=== PATIENT | female | born 1970 | race Caucasian/White ===

== ENCOUNTER → 2019-08-13 16:51 | Outpatient (BNVA) | payer SELFPAY | PROVIDERS: Family Provider Family Medicine; PCP Family Medicine; Visit Provider Emergency Medicine | DX: M54.5 Low back pain (principal) | CPT/HCPCS: 81000 ==

== ENCOUNTER → 2021-11-30 09:26 | Outpatient (BNVA) | payer MEDICAID, SELFPAY | PROVIDERS: Family Provider Family Medicine; PCP Family Medicine; Visit Provider Orthopaedic Surgery | DX: S83.241A Other tear of medial meniscus, current injury, right knee, initial encounter (principal); W19.XXXA Unspecified fall, initial encounter; M71.21 Synovial cyst of popliteal space [Baker], right knee | CPT/HCPCS: 73560; 73565 ==

== ENCOUNTER → 2022-05-18 13:57 | Outpatient (BNVA) | payer MEDICAID, SELFPAY | PROVIDERS: Family Provider Family Medicine; Visit Provider Emergency Medicine | DX: M79.644 Pain in right finger(s) (principal) | CPT/HCPCS: 73130 ==

== ENCOUNTER → 2022-08-01 15:36 | Outpatient (BNVA) | payer MEDICAID, SELFPAY | PROVIDERS: Family Provider Family Medicine; Visit Provider Family Medicine | DX: M51.16 Intervertebral disc disorders with radiculopathy, lumbar region (principal); M48.07 Spinal stenosis, lumbosacral region | CPT/HCPCS: 72100 ==

== ENCOUNTER → 2022-08-15 14:35 | Outpatient (BNVA) | payer MEDICAID, SELFPAY | PROVIDERS: Family Provider Family Medicine; PCP Family Medicine; Visit Provider Nurse Practitioner Family | DX: M25.569 Pain in unspecified knee (principal) | CPT/HCPCS: 73560; 73565 ==

== ENCOUNTER → 2023-04-06 11:29 | Outpatient (BNVA) | payer MEDICAID, SELFPAY | PROVIDERS: Family Provider Family Medicine; PCP Family Medicine; Visit Provider Nurse Practitioner | DX: M25.562 Pain in left knee (principal); R93.6 Abnormal findings on diagnostic imaging of limbs | CPT/HCPCS: 73562 ==

== ENCOUNTER → 2023-05-07 13:28 | Outpatient (BNVA) | payer MEDICAID, SELFPAY | PROVIDERS: Family Provider Family Medicine; PCP Family Medicine; Visit Provider Nurse Practitioner | DX: M17.11 Unilateral primary osteoarthritis, right knee (principal); M25.362 Other instability, left knee; S83.207A Unspecified tear of unspecified meniscus, current injury, left knee, initial encounter; X58.XXXA Exposure to other specified factors, initial encounter | CPT/HCPCS: 73560; 73565 ==

== ENCOUNTER → 2023-05-09 10:57 | Outpatient (BNVA) | payer MEDICAID, SELFPAY | PROVIDERS: Family Provider Family Medicine; PCP Family Medicine; Visit Provider Family Medicine | DX: Z13.6 Encounter for screening for cardiovascular disorders (principal); I50.9 Heart failure, unspecified; E03.9 Hypothyroidism, unspecified; Z13.1 Encounter for screening for diabetes mellitus; Z13.220 Encounter for screening for lipoid disorders | CPT/HCPCS: 80053; 80061; 83036; 84439; 84443; 84481; 85025 ==

== ENCOUNTER 2023-06-12 13:34 | Outpatient (CLI) | payer MEDICAID, SELFPAY ==
--- NOTE | 2023-06-12 13:45 | MR_ITS ---
WS: [id number] MRI LEFT KNEE HISTORY: left knee pain and instability COMPARISON: None available. Anterior cruciate ligament: Intact. Posterior cruciate ligament: Intact. Medial collateral ligament: Increased T2 signal adjacent to the mid to distal MCL. There is no full-t hickness tear. Posterior lateral corner structures: Intact. Medial menisci: Mild fraying along the anterior and posterior horns. No full-thickness tear is identi fied. Lateral meniscus: Intact. Normal signal, size and shape. Extensor mechanism: Distal quadriceps tendon and patellar tendons are intact. Fluid and soft tissue: No joint effusion. No Carranza's cyst. Osseous and articular structures: Patellofemoral compartment: Normal. Medial compartment: Moderate narrowing the medial compartment. Marrow edema along the weightbearing s urface of the tibial plateau and into the diaphysis. There is an additional thinning with fissuring t he weightbearing surface of the femoral condyle and tibial plateau. Moderate diffuse chondromalacia. Lateral compartment: Mild narrowing of the lateral compartment with thinning and fissuring of the car tilage. IMPRESSION: 1. Mild MCL sprain. No full-thickness tear. 2. Marrow edema medial tibial plateau. No fracture identified. 3. Moderate narrowing of the medial compartment with moderate chondromalacia. 4. Mild narrowing of the lateral compartment with mild fissuring of the cartilage. 5. No meniscal tear is identified.
== END 2023-06-12 13:35 | disposition home or self-care (01) ==
LOC: RAD 13:34
PROVIDERS: Family Provider Family Medicine; PCP Family Medicine; Visit Provider Nurse Practitioner
DX: M25.362 Other instability, left knee (principal); S83.207A Unspecified tear of unspecified meniscus, current injury, left knee, initial encounter; M23.52 Chronic instability of knee, left knee; S83.8X2A Sprain of other specified parts of left knee, initial encounter; X58.XXXA Exposure to other specified factors, initial encounter
CPT/HCPCS: 73721

== ENCOUNTER → 2023-09-12 14:48 | Outpatient (BNVA) | payer MEDICAID, SELFPAY | PROVIDERS: PCP Family Medicine; Visit Provider Specialist | DX: S83.412A Sprain of medial collateral ligament of left knee, initial encounter (principal); M17.12 Unilateral primary osteoarthritis, left knee; S80.02XA Contusion of left knee, initial encounter; S83.207A Unspecified tear of unspecified meniscus, current injury, left knee, initial encounter; W22.8XXA Striking against or struck by other objects, initial encounter | CPT/HCPCS: 73560; 73565 ==

== ENCOUNTER 2023-10-23 15:48 | Outpatient (CLI) | payer MEDICAID, SELFPAY ==
--- NOTE | 2023-10-23 16:00 | MR_ITS ---
WS: [id number] MRI LEFT KNEE NONCONTRAST TECHNIQUE: Axial PD, coronal PD fat sat, coronal PD, sagittal PD, and sagittal PD fat-sat images obta ined. CLINICAL INFORMATION: pain after injury COMPARISON: MRI 06/12/2023 FINDINGS: Distal quadriceps and patella tendons are intact. Hypertrophic patella. Small suprapatellar effusion. ACL and PCL are intact. Normal lateral meniscus. Horizontal tear involving the posterior horn medial meniscus extending to th e articular surface. Peripheral extrusion of the medial meniscus Grade 1 injury MCL previously described appears improved. Fibular head appears normal. Small amount o f fluid and edema along the proximal LCL compatible with grade 1 injury. Distal LCL appears intact. Moderate chondromalacia patella. Normal medial and lateral retinaculum. Normal popliteal fossa. MR/MR knee LT wo con* [id number] IMPRESSION: 1. ACL and PCL appear intact. 2. Moderate tricompartmental arthritis with moderate suprapatellar effusion 3. Grade III chondromalacia patella. 4. Grade 1 ligamentous injury LCL with fluid and edema along the proximal LCL. Distal ligament appears intact. 5. Horizontal tear involving the posterior horn medial meniscus extending to t he articular surface. Peripheral extrusion of the medial meniscus 6. Previously described edema in the medial tibial plateau appears improved wi th a tiny amount of residual edema. 7. No other acute findings. Outbridge grading: grade III: partial-thickness cartilage loss with focal ulcer ation
== END 2023-10-23 15:49 | disposition home or self-care (01) ==
LOC: RAD 15:49
PROVIDERS: PCP Family Medicine; Visit Provider Specialist
DX: M17.12 Unilateral primary osteoarthritis, left knee (principal); S83.207A Unspecified tear of unspecified meniscus, current injury, left knee, initial encounter; M25.362 Other instability, left knee; S83.412A Sprain of medial collateral ligament of left knee, initial encounter; X58.XXXA Exposure to other specified factors, initial encounter
CPT/HCPCS: 73721

== ENCOUNTER → 2023-10-29 14:06 | Outpatient (BNVA) | payer MEDICAID, SELFPAY | PROVIDERS: PCP Family Medicine; Visit Provider Family Medicine | DX: I50.9 Heart failure, unspecified (principal); E03.9 Hypothyroidism, unspecified | CPT/HCPCS: 80048; 84443 ==

== ENCOUNTER 2023-11-06 08:56 | Outpatient (CLI) | payer MEDICAID, SELFPAY ==
[2023-11-06 09:18] LABS: Charge for UA Resulting for Rev
[2023-11-06 09:22] LABS: Basophils # 0.1 10^3/uL (0.0-0.1); Basophils % 0.9 %; Eosinophils # 0.4 10^3/uL (0.0-0.8); Eosinophils % 5.4 %; Hematocrit 40.3 % (36-47); Lymphocytes # 1.6 10^3/uL (0.8-4.8); Lymphocytes % 23.4 %; Mean Corpuscular HGB Conc 32.5 g/dL (30-55); Mean Corpuscular Hemoglobin 29.2 pg (27-33); Mean Platelet Volume 10.3 fL (7.4-10.4); Monocytes # 0.6 10^3/uL (0.2-0.9); Monocytes % 8.5 %; Neutrophils # 4.21 10^3/uL (1.8-7.7); Neutrophils % 61.5 %; Nucleated Red Blood Cells % 0 %; Platelet Count 221 10^3/cmm (157-399); Red Blood Count 4.48 10^6/uL (3.85-5.65); Red Cell Distribution Width 13.5 % (12.1-15.1); White Blood Count 6.84 10^3/uL (3.29-11.43)
[2023-11-06 09:32] LABS: Bilirubin Urine Neg (Negative); Blood Urine Neg (Negative); Glucose Urine UA Norm (Normal); Ketones Urine Negative (Negative); Leukocyte Esterase Urine Negative (Negative); Nitrate Urine Negative (Negative); Protein Urine Neg (Negative); Urine Appearance Clear (CLEAR); Urine Color Yellow (Yellow); Urobilinogen Urine Norm (Negative); pH Urine 5 (5-7)
[2023-11-06 09:40] LABS: Alanine Aminotransferase 10 U/L (0-33); Albumin Level 4.1 g/dL (3.5-5.2); Alkaline Phosphatase 81 U/L (35-105); Anion Gap 13.9 (5-19); Aspartate Amino Transferase 12 U/L (0-32); Blood Urea Nitrogen 21 mg/dL (6-20); Calcium 8.6 mg/dL (8.5-10.5); Carbon Dioxide 25 mmol/L (22-29); Chloride 107 mmol/L (98-107); Globulin 3.2 g/dL (1.3-4.6); Glomerular Filtration Rate 52.4 mL/min (90-130); Glucose 96 mg/dL (65-115); Osmolality Calculated 297 mOsm/kg (285-295); Potassium 3.9 mmol/L (3.5-5.1); Sodium 142 mmol/L (136-145); Total Bilirubin 0.4 mg/dL (0.15-1.2); Total Protein 7.3 g/dL (6.6-8.7)
== END 2023-11-06 08:57 | disposition home or self-care (01) ==
LOC: LAB 08:58
PROVIDERS: PCP Family Medicine; Visit Provider Nurse Practitioner
DX: M17.12 Unilateral primary osteoarthritis, left knee (principal)
CPT/HCPCS: 36415; 80053; 81003; 81015; 85025

== ENCOUNTER 2023-11-12 14:11 | Outpatient (CLI) | payer MEDICAID, SELFPAY ==
--- NOTE | 2023-11-12 14:00 | CT_ITS ---
WS: [id number] CT LEFT knee, noncontrast HISTORY: PER [facility] PROTOCOL TECHNIQUE: Protocol for [facility] total knee replacement has been obtained. This includes axial imaging th rough the LEFT hip, LEFT knee and LEFT ankle. DLP: 824.36 mGy.cm COMPARISON: Radiograph 09/12/2023 Visualized pelvis is normal. No bone destruction. No joint space narrowing. LEFT knee: No fractures or significant osteophytosis. Small suprapatellar joint effusion. LEFT ankle: Negative. CT/CT knee [facility] [id number] IMPRESSION: CT imaging provided for [facility] robotic total knee replacement.
== END 2023-11-12 14:12 | disposition home or self-care (01) ==
LOC: RAD 14:12
PROVIDERS: PCP Family Medicine; Visit Provider Nurse Practitioner
DX: M17.12 Unilateral primary osteoarthritis, left knee (principal); S83.207A Unspecified tear of unspecified meniscus, current injury, left knee, initial encounter; M25.362 Other instability, left knee; X58.XXXA Exposure to other specified factors, initial encounter
CPT/HCPCS: 73700

== ENCOUNTER → 2023-11-14 09:35 | Outpatient (BNVA) | payer MEDICAID, SELFPAY | PROVIDERS: PCP Family Medicine; Visit Provider Family Medicine | DX: Z01.818 Encounter for other preprocedural examination (principal) | CPT/HCPCS: 93005 ==

== ENCOUNTER 2023-11-28 11:38 | Outpatient (CLI) | payer MEDICAID, SELFPAY ==
--- NOTE | 2023-11-28 11:40 | USCV_ITS ---
Deyanira Frey Age: 53 Gender: F : 1970 Exam Date: 11/28/2023 11:52 Ordering Phys: Berna Roger MD Technologist: [place] [facility] [place]: BP: 114 / 75 HR: 89 Rhythm: Sinus Technical Quality: Adequate MEASUREMENTS (Male / Female) Normal Values 2D ECHO LVOT Diameter 2.0 cm LV Ejection Fraction MOD 4C 32.6 % LV Ejection Fraction MOD 2C 46.2 % LV Ejection Fraction 2C AL 46.4 % LA Diameter 3.2 cm RA Systolic Volume 4C AL 27.9 ml RA Systolic Volume 4C MOD 27.3 ml LA Sys Volume AL 50.6 cm cubed LA Sys Volume Index AL 24.4 cm cubed/m squared Aorta at Sinotubular Diameter 2.5 cm IVC Diameter 2.3 cm M-MODE LA Ao Ratio MM 1.2 AV Cusp Separation MM 1.7 cm DOPPLER AV Peak Velocity 109.0 cm/s LVOT Peak Velocity 107.0 cm/s AV Area Cont Eq vti 2.9 cm squared AV Area Cont Eq pk 3.1 cm squared MV Peak Velocity 118.0 cm/s MV Area PHT 4.3 cm squared Mitral E to A Ratio 109.0 TV Peak E Velocity 72.0 cm/s Right Atrial Pressure 3.0 mmHg PV Peak Velocity 72.0 cm/s FINDINGS Left Ventricle Severely increased left ventricular cavity size. Severely decreased left ventricular systolic function. Left ventricular ejection fraction is estimated at 20 %. Global left ventricular hypokinesis. Grade II/IV diastolic dysfunction, moderately elevated filling pressures Right Ventricle The right ventricle is normal in size and function. Right Atrium The right atrium is normal in size. Left Atrium The left atrium is normal in size. Mitral Valve Thickened mitral valve. Moderate mitral valve regurgitation. Aortic Valve Mild aortic valve calcification. No aortic valve stenosis. Trace aortic valve regurgitation. Tricuspid Valve Structurally normal tricuspid valve without significant stenosis or regurgitation. Pulmonary artery systolic pressure is normal. Pulmonic Valve Structurally normal pulmonic valve without significant stenosis. There is no pulmonic regurgitation. Pericardium Normal pericardium without effusion. Aorta Normal ascending aorta dimension. IVC The inferior vena cava appears normal. CONCLUSIONS Severely increased left ventricular cavity size. Severely decreased left ventricular systolic function. Left ventricular ejection fraction is estimated at 20 %. Global left ventricular hypokinesis. Grade II/IV diastolic dysfunction, moderately elevated filling pressures Mild aortic valve calcification. No aortic valve stenosis. Trace aortic valve regurgitation. No significant valve abnormalities. There is no pericardial effusion. Right atrial pressure is around 15 mm of mercury. Nilesh Parks MD (Electronically Signed) Final Date: 29 November 2023 10:38 S
== END 2023-11-28 11:39 | disposition home or self-care (01) ==
LOC: RAD 11:38
PROVIDERS: PCP Family Medicine; Visit Provider Family Medicine
DX: I35.1 Nonrheumatic aortic (valve) insufficiency (principal); I50.20 Unspecified systolic (congestive) heart failure
CPT/HCPCS: 93306

== ENCOUNTER 2024-01-04 10:22 | Outpatient (CLI) | payer OTHER, SELFPAY | END 2024-01-04 10:23 | disposition home or self-care (01) | LOC: SPT 10:22 | PROVIDERS: PCP Family Medicine; Visit Provider Nurse Practitioner | DX: Z46.89 Encounter for fitting and adjustment of other specified devices (principal); S83.4 Sprain of collateral ligament of knee; X58.XXXS Exposure to other specified factors, sequela; M17.12 Unilateral primary osteoarthritis, left knee | CPT/HCPCS: L1852 ==

== ENCOUNTER → 2024-01-17 12:37 | Outpatient (BNVA) | payer MEDICAID, SELFPAY | PROVIDERS: PCP Family Medicine; Referring Provider Internal Medicine Cardiovascular Disease; Visit Provider Family Medicine | DX: R06.02 Shortness of breath (principal) | CPT/HCPCS: 80048; 83880 ==

== ENCOUNTER → 2024-02-27 09:50 | Outpatient (BNVA) | payer MEDICAID, SELFPAY | PROVIDERS: PCP Family Medicine; Visit Provider Nurse Practitioner Family | DX: I50.40 Unspecified combined systolic (congestive) and diastolic (congestive) heart failure (principal); I50.9 Heart failure, unspecified | CPT/HCPCS: 36415; 80048; 83880 ==

== ENCOUNTER 2024-03-11 13:53 | Outpatient (CLI) | payer MEDICAID, SELFPAY ==
--- NOTE | 2024-03-11 14:15 | USCV_ITS ---
Deyanira Frey Age: 53 Gender: F : 1970 Exam Date: 03/11/2024 14:16 Ordering Phys: Selin Nath Technologist: CT Exam Location: [facility]_ Indication: BP: 113 / 72 HR: Rhythm: Sinus Technical Quality: Adequate MEASUREMENTS (Male / Female) Normal Values 2D ECHO LVOT Diameter 2.0 cm LV Ejection Fraction MOD 4C 43.0 % LV Ejection Fraction MOD 2C 27.1 % LV Ejection Fraction 2C AL 28.8 % LA Diameter 3.0 cm RA Systolic Volume 4C AL 37.9 ml RA Systolic Volume 4C MOD 35.7 ml LA Sys Volume AL 43.1 cm cubed LA Sys Volume Index AL 21.2 cm cubed/m squared Aorta at Sinotubular Diameter 2.2 cm M-MODE LA Ao Ratio MM 1.2 AV Cusp Separation MM 1.4 cm FINDINGS Left Ventricle Moderately dilated LV cavity with the depressed ejection fraction of 20-25%((visual). Diffuse hypokinesia left- ventricular with dyskinetic and thinned out septum and severely hypokinetic inferior wall. Right Ventricle Appears to be normal size ejection fraction Right Atrium Appears to be of normal size Left Atrium Appears to be of normal size Mitral Valve No gross morphologic abnormalities Aortic Valve No gross morphologic abnormalities Tricuspid Valve No gross abnormalities noted Pulmonic Valve Pulmonic valve not well visualized. Pericardium Normal pericardium without effusion. Aorta Normal ascending aorta dimension. IVC Inferior vena cava not visualized. CONCLUSIONS Moderately dilated LV cavity with the depressed ejection fraction of 20-25% (visual). Diffuse hypokinesia left-ventricular with dyskinetic and thinned out septum and severely hypokinetic inferior wall. There is no pericardial effusion. There are no intracardiac masses. Compared to the study from 11/28/2023 there may not be a significant change in the 2D findings Dr Nakita Brown MD [facility] (Electronically Signed) Final Date: 16 March 2024 19:15 S
== END 2024-03-11 13:54 | disposition home or self-care (01) ==
PROVIDERS: PCP Family Medicine; Visit Provider Nurse Practitioner Family
DX: I50.40 Unspecified combined systolic (congestive) and diastolic (congestive) heart failure (principal)
CPT/HCPCS: 93308

== ENCOUNTER → 2024-04-09 11:17 | Outpatient (BNVA) | payer MEDICAID, SELFPAY | PROVIDERS: PCP Family Medicine; Visit Provider Nurse Practitioner | DX: M17.12 Unilateral primary osteoarthritis, left knee (principal); M25.362 Other instability, left knee; S83.207D Unspecified tear of unspecified meniscus, current injury, left knee, subsequent encounter; S80.02XD Contusion of left knee, subsequent encounter; S83.412D Sprain of medial collateral ligament of left knee, subsequent encounter; X58.XXXD Exposure to other specified factors, subsequent encounter | CPT/HCPCS: 36415; 73560; 73565; 80053; 81001; 85025 ==

== ENCOUNTER 2024-04-14 14:34 | Outpatient (CLI) | payer MEDICAID, SELFPAY ==
--- NOTE | 2024-04-14 17:15 | CT_ITS ---
WS: [id number] CT LEFT knee, noncontrast HISTORY: surgery planning TECHNIQUE: Protocol for [facility] total knee replacement has been obtained. This includes axial imaging th rough the LEFT hip, LEFT knee and LEFT ankle. DLP: 994.70 mGy.cm COMPARISON: 11/12/2023 Pelvis: No destructive bone lesions. Mild sacroiliitis. LEFT knee: Mild medial compartment osteoarthritis. No joint effusion. LEFT ankle: Negative. CT/CT knee [facility] [id number] IMPRESSION: CT imaging provided for [facility] robotic total knee replacement.
== END 2024-04-14 14:35 | disposition home or self-care (01) ==
LOC: RAD 14:35
PROVIDERS: PCP Family Medicine; Visit Provider Nurse Practitioner
DX: M17.12 Unilateral primary osteoarthritis, left knee (principal); S83.207A Unspecified tear of unspecified meniscus, current injury, left knee, initial encounter; M25.362 Other instability, left knee; X58.XXXA Exposure to other specified factors, initial encounter; M46.1 Sacroiliitis, not elsewhere classified
CPT/HCPCS: 73700

== ENCOUNTER 2024-04-17 12:09 | Inpatient (IN) | payer MEDICAID, SELFPAY ==
[2024-04-17] VITALS (52 sets, daily range): BP systolic 74–126; BP diastolic 48–79; PULSE 62–106; RESP 11–34; TEMP 36.1–36.8; O2SAT 95–100; BMI 31.8
[2024-04-17] MEDS: sodium chloride 0.9% 1,000 ML 30 ML IV (06:19)
[2024-04-17] MEDS: gabapentin 300 mg Capsule PO (06:20)
[2024-04-17] MEDS: CELEcoxib 200 mg Capsule 400 MG PO (06:20)
[2024-04-17] MEDS: acetaminophen 1,000 MG/100 ML PIGGYBACK 400 MG IV ×3 (06:20→20:29)
--- NOTE | 2024-04-17 06:57 | PC.NURSE ---
[id number]: time out performed by TAQUERIA. 30 ml of 1/2 % ropivicaine injected using ultrasound guidence
--- NOTE | 2024-04-17 07:06 | P.ANESASSM_ITS ---
Pre-Anesthetic Assessment Height/Weight: Height 1.65 m Weight 86.636 kg Temp Pulse Resp BP Pulse Ox O2 Del Method 98.2 F 86 18 117/73 98 Room Air 04/17/24 05:57 04/17/24 05:57 04/17/24 05:57 04/17/24 05:57 04/17/24 05:57 04/17/24 06:04 Operation Date: 04/17/24 07:00 Proposed Procedures p Abdifatah Robot Total Knee Arthroplasty with Medial compartment(Left) - Judy Chacon MD Familial anesthetic complications: None Was Beta Kevyn taken within 24 hours: Yes (1200 yesterday) Was Clonidine taken within 24 hours: N/A Last intake: Intake Last Liquid Date 04/16/24 Last Liquid Time 23:40 Last Solid Date 04/16/24 Last Solid Time 23:40 Social No alcohol and No tobacco Exam alert, oriented x 3, clear to auscultation bilaterally and regular rate & rhythm Airway Mallampati: Class I Dentition: false CV/HEM Congestive Heart Failure (EF 20%, medications optimized ) and Hypertension Chronic Renal Insufficiency GI Gastroesophageal Reflux Disease Metabolic Thyroid Disease Anesthetic Plan ASA status: 4 Anesthesia: Regional (specify below) Other: spinal + adductor Risk of > 500 ml blood loss (7ml/kg in children): No Other Pertinent Information Discussed with patient she is at high risk of cardiac complications rafaela- operatively Plan for A-line and placement of defibrillator pads Discussed risks of anesthesia and plan to keep sedation on ditching machine operator side and informed her she may experience some intraop awareness including hearing noises and voices Medications/Allergies Home Medications Medication Instructions Recorded Confirmed Last Taken Type Hinged knee brace, LEFT #1 ea 05/07/23 04/09/24 Unknown Rx hinged knee brace #1 ea 06/18/23 04/09/24 Unknown Rx carvedilol 12.5 mg tablet 12.5 mg PO DAILY 90 days #90 tabs 10/29/23 04/16/24 04/15/24 Rx famotidine 20 mg tablet 20 mg PO BID 90 days #180 tabs 10/29/23 04/16/24 04/15/24 Rx levothyroxine 200 mcg tablet 200 mcg PO DAILY 90 days #90 tabs 10/29/23 04/16/24 04/15/24 Rx meloxicam 15 mg tablet 15 mg PO DAILY 90 days #90 tabs 10/29/23 04/16/24 04/12/24 Rx methocarbamol 750 mg tablet 750 mg PO BID 90 days #180 tabs 10/29/23 04/16/24 04/11/24 Rx Medial [employer] Knee Brace #1 ea 01/04/24 04/09/24 Unknown Rx buspirone 15 mg tablet 15 mg PO TID 30 days #90 tabs 01/11/24 04/16/24 04/13/24 Rx trazodone 50 mg tablet 50 mg PO .qhs PRN Insomnia #30 tabs 01/11/24 04/16/24 Unknown Rx miscellaneous medical supply See Rx Instructions miscellaneous 02/05/24 04/09/24 Unknown Rx .COMPLEX #1 ea pregabalin 100 mg capsule 100 mg PO BID 30 days #60 caps 02/05/24 04/16/24 04/11/24 Rx sacubitril 49 mg-valsartan 51 mg 1 tab PO BID #180 tabs 02/27/24 04/16/24 04/13/24 Rx tablet diazepam 5 mg tablet 5 mg PO BID PRN anxiety 30 days 02/28/24 04/16/24 04/12/24 Rx #30 tabs tramadol 50 mg tablet 50 mg PO Q8H PRN pain #21 tabs 02/29/24 04/16/24 04/14/24 Rx furosemide 20 mg tablet (Lasix) 20 mg PO DAILY #30 tabs 03/31/24 04/16/24 04/14/24 Rx spironolactone 25 mg tablet 25 mg PO DAILY #30 tabs 03/31/24 04/16/24 04/13/24 Rx hydrocodone 5 mg-acetaminophen 325 1 tab PO Q8H PRN pain 5 days #15 04/01/24 04/16/24 04/14/24 Rx mg tablet tabs bupropion HCl 150 mg 24 hr tablet, 150 mg PO QAM 04/16/24 04/16/24 04/13/24 History extended release (Wellbutrin XL) Allergies Allergy/AdvReac Type Severity Reaction Status Date / Time Penicillins Allergy hives Verified 04/16/24 14:03 Current Medications Generic Name Dose Route Start Last Admin Trade Name Freq PRN Reason Stop Dose Admin Sodium Chloride 1,000 mls @ 30 mls/hr 04/17/24 05:45 04/17/24 06:19 Sodium Chloride 0.9% IV 04/18/24 05:44 30 mls/hr .Q24H DENISSE Administration PFSH Anesthesia Medical History MCL sprain of left knee Primary osteoarthritis of left knee Positive Anahi test of left knee Instability of left knee joint Instability of right knee joint Osteoarthritis of right knee Grief MDD (major depressive disorder) Psychiatric care CHF (congestive heart failure) Low back pain at multiple sites Social History Smoking and tobacco/nicotine status: never used tobacco/nicotine Alcohol intake: current Alcohol intake frequency: holidays/special occasions only Substance/Drug Use: never Data Anesthesia Cardiac Studies: Echocardiogram 11/28/23 Echocardiogram Limited Views 03/11/24
--- NOTE | 2024-04-17 07:06 | W.PM.OPSUD ---
Surgery/Procedure H&P Update DATE OF PROCEDURE: April 17, 2024 DATE H&P PERFORMED: 04/09/24 H&P UPDATE INFORMATION: I have reviewed H&P completed within last 30 days, I have examined patient prior to procedure, No changes to prior documentation and H&P is in [facility] EMR on date indicated PLANNED PROCEDURE: Operation Date: 04/17/24 07:00 Proposed Procedures p Abdifatah Robot Total Knee Arthroplasty with Medial compartment(Left) - Judy Chacon MD Related Problem List Diagnoses (1) Primary osteoarthritis of left knee:
[2024-04-17] MEDS: clindamycin 600 MG/50 ML PREMIX 100 MG IV (07:07)
--- NOTE | 2024-04-17 07:10 | ANES.PROC ---
Anesthesia Procedures Procedure/Date: 04/17/24 Nerve Block ^: Nerve Block 1: Main Anesthesia: spinal anesthesia block Time Out Performed: Yes Consent: requested by attending/covering physician, from patient, from other, risks and benefits reviewed and patient agrees to proceed Nerve block location: adductor canal (L) Anesthesia monitors applied: pulse oximetry, EKG, BP cuff and oxygen Nerve block position: supine Anesthetic Used: ropivicaine 0.5% (30 ml) and with decadron (4 mg) Ultrasound used to: recognize landmarks and visualize and ID femerol nerve Nerve Stimulator Used?: No Interscalene/Femoral BLK: 4 stimuplex 21 g needle used for position and inplane approach, visualize local anesthetic spread and no vascular puncture identified Injection: neg aspiration of heme Patient Tolerated Procedure: well Complications: none
[2024-04-17] MEDS: tranexamic acid 1,000 mg/10mL SDV 1000 MG IV (08:06)
[2024-04-17] MEDS: VANCOMYCIN ADD-Vantage 1,000 MG VIAL 3000 MG IRRIGATION (08:13)
[2024-04-17] MEDS: VANCOMYCIN ADD-Vantage 1,000 MG VIAL 1000 MG IRRIGATION (08:14)
[2024-04-17] MEDS: VANCOMYCIN ADD-Vantage 1,000 MG VIAL 1000 MG XX (08:14)
--- NOTE | 2024-04-17 10:40 | XR_ITS ---
WS: [id number] Exam: XR knee LT 3V* [id number] Date/Time of Exam: 04/17/2024 10:43 AM Reason For Exam: Status post unicompartmental knee arthroplasty Medial joint compartment apartment arthroplasty in place in satisfactory position. Postoperative vences ges in the adjacent soft tissues. XR/XR knee LT 3V* [id number] IMPRESSION: 1. Medial joint replacement in satisfactory position.
--- NOTE | 2024-04-17 10:53 | P.OP_ITS ---
Operative Report Date of procedure: April 17, 2024 Pre-op diagnosis: Left knee medial compartment primary osteoarthritis Post-op diagnosis: Left knee medial compartment primary osteoarthritis Post-op findings: Severe degenerative arthritis of the medial compartment of the left knee Procedure done: Left knee medial unicompartmental arthroplasty with Abdifatah guidance Implants: The [place] knee system with a size 3LM Abdifatah onlay tibial baseplate and a Abdifatah onlay tibial insert size 3 x 10 mm with a size 4LM femoral component Specimens removed/disposition: Bone, disposed to have Pathology: None Surgeon: Judy Chacon MD Web Designer Developer: Krysten Silverman NP, who services were required for exposure, completion of the surgical procedure including positioning and retraction. Anesthesia: Spinal (With MAC, ASA 4) Estimated blood loss (mL): 150 Tourniquet time (min): 22 (At 250 mmHg during cementing) IV fluids (mL): 1,000 Urine output (mL): 200 Complications: None Findings: Significant degenerative osteoarthritis of the medial compartment with preservation of cartilage in the lateral and patellofemoral compartments. There was osteophyte formation on the superior and inferior portion of the patella, but this was minimal. Condition: stable Disposition: PACU (Then to floor for postoperative rehabilitation and pain management under observation status.) Brief History: This 53-year-old woman presented with complaints of left knee pain with significant discomfort, aching, crepitation, and instability. The patient tried and failed conservative measures including bracing, medications, physical therapy, and injections. Her pain when presenting to clinic was 6 of 10. Her pain was confined to the medial aspect of the knee. Discussion was undertaken with regards to possible total knee arthroplasty versus unicompartmental knee arthroplasty. Given that lateral and patellofemoral joint spaces appeared well- preserved, plans were made for unicompartmental left knee arthroplasty. Risks and complications were discussed. Consents were signed and questions were answered. Procedure: The patient was brought to the operating theater, and after undergoing spinal anesthesia with supplemental MAC, as well as an adductor canal block, ASA 4, the left lower extremity was prepped with Dura-Prep and draped in usual fashion f ollowing placement of a tourniquet high on the leg. The leg was then draped free.? Tourniquet was not elevated during the case until cementing. At that time, it was elevated to 250 mmHg for a total of 22 minutes.? A surgical pause was performed, and at the time of the surgical pause, we confirmed the site and side of surgery. Additionally, we confirmed the appropriate and timely administration of preoperative antibiotics, clindamycin 600 mg and Transexemic acid 1 g.? The availability of equipment was confirmed, and the patient's identity was verbalized as well.? An additional transexemic acid 1 g will be given postoperatively on the floor. Following the surgical pause, an incision was made centering over the patella continuing proximally and distally as necessary to allow access to the knee joint. Dissection continued through skin and soft tissues using a scalpel. Hemostasis was obtained using electrocautery. The skin incision was followed by a median parapatellar arthrotomy with care to protect the lateral compartment and patellofemoral. The leg was extended and the patella was able to be displaced laterally.? Appropriate arrays and markers were placed in appropriate position for use of the Abdifatah.? Preoperative planning had been accomplished and was discussed in detail with the [facility] sales account representative.? Intraoperative mapping of the femur and tibia was accomplished after the arrays were placed.? Internal markers were also placed.? Once we had accomplished the Abdifatah mapping, we began the appropriate resections for placement of the prosthesis.? The plan was for a left unicompartmental knee arthroplasty with patellar arthroplasty without prosthesis. Once appropriate mapping had been accomplished retraction was established using manual retraction by surgical technicians and also the Abdifatah leg positioner and retractors.? The knee was evaluated.? There was noted to be complete denudement of cartilage from the medial aspect of the femur and tibia. The lateral compartment was found to be nearly pristine. The patella was also found to be nearly pristine as well, but there were osteophytes that were quite small superiorly and inferiorly. These were excised. Appropriate bone resection was accomplished utilizing the Abdifatah. This resection began on the tibia and proceeded to the femur medially. The femur and tibia were appropriate previously prepared for cementing of the unicompartmental prosthesis. Prior to placement of the prosthesis, a patellar arthroplasty without prosthesis was accomplished by removing the osteophyte circumferentially about the patella. A trial reduction was accomplished following removal of the medial meniscus. The anterior cruciate ligament was retained. The trial reduction initially was accomplished with the size 3 tibial baseplate and a 3 x 8 mm insert. We subsequently increase that to a 10 mm insert after the trial reduction was accomplished. The size 4 femur was placed in position without difficulty. With these components in position, we had excellent extension without hyperextension as the patient initially demonstrated. We had excellent varus valgus stability throughout all range of motion of the knee. Therefore, preparation was made for cementing. The knee was copiously irrigated. It was subsequently dried. Cementing was then accomplished first the tibia followed by the femur. Excess cement was cleared from around the prosthetic components. The size 3 x 10 mm insert was placed into position. The knee was placed through range of motion. Further cement was cleared following that. Once the cement had fully cured, attention was directed to closure. The knee was then copiously irrigated with betadine and saline and suctioned dry. Attention was then directed to closure. Closure was accomplished with 0 Vicryl in the fascial tissues.? The suture line of 0 Vicryl was supplemented with strata fix, #0, with a running stitch from proximal to distal and a second running stitch from distal to proximal.? This was followed by Surgiflo and vancomycin powder.? Following this, a 2-0 Monocryl strata fix was used in the subcutaneous tissues, and the skin was closed with a running 3 oh STRATAFIX.? Care was taken to assure an excellent subcutaneous as well as skin closure.? A sterile dressing was then placed consisting of Dermabond Prineo, OpSite, sterile soft roll, and an Gerson wrap including over the foot. The patient was returned the Recovery Room in a satisfactory condition. X- rays were obtained and reviewed there.? The patient will be discharged to the floor for postoperative rehabilitation and pain management. Related Problem List Diagnoses (1) Primary osteoarthritis of left knee:
[2024-04-17] MEDS: ePHEDrine 50 mg/mL Inj 25 MG IM (11:08)
[2024-04-17] MEDS: chlorhexidine gluconate 0.12% Btl 473 mL 30 ML MUCOUS MEM ×3 (12:44→21:43)
[2024-04-17] MEDS: HYDROcodone-acetaminophen 5-325 mg Tablet 1 TAB PO (12:44)
[2024-04-17] MEDS: CELEcoxib 200 mg Capsule PO ×2 (12:44→23:30)
--- NOTE | 2024-04-17 14:12 | ANE.PACU2 ---
Inpatient post-anesthesia follow up: Airway intact: Yes Vital signs: Temperature 97.8 F Pulse Rate 102 Respiratory Rate 18 Blood Pressure 99/61 Pulse Oximetry 96 Oxygen Delivery Me thod Room Air Oxygen Flow Rate 0 Fraction of Inspir ed Oxygen Hydration adequate: Yes Nausea and vomiting: No Pain level: 1 Mental status: Baseline
[2024-04-17] MEDS: BuSPIRONE 10 mg Tablet 15 MG PO ×2 (14:34→20:29)
[2024-04-17] MEDS: tranexamic acid 1,000 MG/100 ML PREMIX 600 MG IV (14:35)
[2024-04-17] MEDS: clindamycin 900 MG/50 ML PREMIX 100 MG IV ×2 (14:35→23:11)
--- NOTE | 2024-04-17 15:54 | PC.NURSE ---
Pt's BP 86/[address] Chacon advised. States she will consult hospitalist for BP management.
--- NOTE | 2024-04-17 16:11 | PM.CONSULT ---
Providers/Reason For Consult Attending Physician: Judy Chacon MD Primary Care Provider: Hallie Gatica MD History of Present Illness History of Present Illness Deyanira Frey is a 54 year old female Medications/Allergies Home Medications Medication Instructions Recorded Confirmed Last Taken Type Hinged knee brace, LEFT #1 ea 05/07/23 04/09/24 Unknown Rx hinged knee brace #1 ea 06/18/23 04/09/24 Unknown Rx carvedilol 12.5 mg tablet 12.5 mg PO DAILY 90 days #90 tabs 10/29/23 04/16/24 04/15/24 Rx famotidine 20 mg tablet 20 mg PO BID 90 days #180 tabs 10/29/23 04/16/24 04/15/24 Rx levothyroxine 200 mcg tablet 200 mcg PO DAILY 90 days #90 tabs 10/29/23 04/16/24 04/15/24 Rx meloxicam 15 mg tablet 15 mg PO DAILY 90 days #90 tabs 10/29/23 04/16/24 04/12/24 Rx methocarbamol 750 mg tablet 750 mg PO BID 90 days #180 tabs 10/29/23 04/16/24 04/11/24 Rx Medial Provider Enrollment Specialist Knee Brace #1 ea 01/04/24 04/09/24 Unknown Rx buspirone 15 mg tablet 15 mg PO TID 30 days #90 tabs 01/11/24 04/16/24 04/13/24 Rx trazodone 50 mg tablet 50 mg PO .qhs PRN Insomnia #30 tabs 01/11/24 04/16/24 Unknown Rx miscellaneous medical supply See Rx Instructions miscellaneous 02/05/24 04/09/24 Unknown Rx .COMPLEX #1 ea pregabalin 100 mg capsule 100 mg PO BID 30 days #60 caps 02/05/24 04/16/24 04/11/24 Rx sacubitril 49 mg-valsartan 51 mg 1 tab PO BID #180 tabs 02/27/24 04/16/24 04/13/24 Rx tablet diazepam 5 mg tablet 5 mg PO BID PRN anxiety 30 days 02/28/24 04/16/24 04/12/24 Rx #30 tabs tramadol 50 mg tablet 50 mg PO Q8H PRN pain #21 tabs 1204/16/24 04/14/24 Rx furosemide 20 mg tablet (Lasix) 20 mg PO DAILY #30 tabs 03/31/24 04/16/24 04/14/24 Rx spironolactone 25 mg tablet 25 mg PO DAILY #30 tabs 03/31/24 04/16/24 04/13/24 Rx hydrocodone 5 mg-acetaminophen 325 1 tab PO Q8H PRN pain 5 days #15 04/01/24 04/16/24 04/14/24 Rx mg tablet tabs bupropion HCl 150 mg 24 hr tablet, 150 mg PO QAM 04/16/24 04/16/24 04/13/24 History extended release (Wellbutrin XL) Allergies Allergy/AdvReac Type Severity Reaction Status Date / Time Penicillins Allergy hives Verified 04/16/24 14:03 Current Medications Generic Name Dose Route Start Last Admin Trade Name Freq PRN Reason Stop Dose Admin Hydrocodone Bitart/Acetaminophen 1 tab 04/17/24 12:12 04/17/24 12:44 Hydrocodone-Acetaminophen 5-325 Mg Tablet PO 1 tab Q8H PRN Administration pain Buspirone HCl 15 mg 04/17/24 15:00 04/17/24 14:34 Buspirone 10 Mg Tablet PO 15 mg TID DENISSE Administration Celecoxib 200 mg 04/17/24 12:12 04/17/24 12:44 Celecoxib 200 Mg Capsule PO 200 mg Q12H DENISSE Administration Chlorhexidine Gluconate 30 ml 04/17/24 13:00 04/17/24 12:44 Chlorhexidine Gluconate 0.12% Btl 473 Ml MUCOUS MEM 30 ml QID DENISSE Administration Acetaminophen 1,000 mg in 100 mls @ 400 mls/hr 04/17/24 12:12 04/17/24 14:26 Acetaminophen IV 04/18/24 04:26 Infused Q8H DENISSE Infusion Clindamycin HCl/Dextrose 900 mg in 50 mls @ 100 mls/hr 04/17/24 15:00 04/17/24 15:18 Cleocin IV 04/18/24 07:29 Infused Q8H DENISSE Infusion Protocol PFSH Acute PFSH: Medical History MCL sprain of left knee Primary osteoarthritis of left knee Positive Anahi test of left knee Instability of left knee joint Instability of right knee joint Osteoarthritis of right knee Grief MDD (major depressive disorder) Psychiatric care CHF (congestive heart failure) Low back pain at multiple sites Social History Smoking and tobacco/nicotine status: never used tobacco/nicotine Alcohol intake: current Alcohol intake frequency: holidays/special occasions only Substance/Drug Use: never Vitals/I&O/Wt Last Vital Signs Temp 97.1 F L 04/17/24 15:50 Pulse 101 H 04/17/24 16:06 Resp 20 H 04/17/24 15:50 BP 86/49 04/17/24 16:06 Pulse Ox 100 04/17/24 15:50 O2 Del Method Room Air 04/17/24 15:50 O2 Flow Rate 0 04/17/24 12:12 04/17/24 04/17/24 04/17/24 06:59 14:59 22:59 Intake Total 100 / 100 150 / 150 150 / 300 Output Total 550 / 550 Balance 100 / 100 -400 / -400 150 / -250 Weight last 48 hrs Weight 86.636 kg Weight 86.636 kg Physical Exam Urinary Catheter Management: Argueta: Cath Placed During This Visit: yes Urinary Catheter Date of Insertion: 04/17/24 Urinary Catheter Time of Insertion: 07:45 Coding Level of Care Code Acute Code for Chg Fwd
[2024-04-17] MEDS: sodium chloride 0.9% 250 ML IV (16:18)
[2024-04-17 17:03] LABS: Basophils % 0.2 %; Hematocrit 31.8 % (36-47); Lymphocytes # 0.5 10^3/uL (0.8-4.8); Lymphocytes % 5.9 %; Mean Corpuscular HGB Conc 32.4 g/dL (30-55); Mean Corpuscular Hemoglobin 29.3 pg (27-33); Mean Corpuscular Volume 90.6 fl (85-98); Mean Platelet Volume 10.8 fL (7.4-10.4); Monocytes # 0.3 10^3/uL (0.2-0.9); Monocytes % 2.8 %; Neutrophils # 8.04 10^3/uL (1.8-7.7); Neutrophils % 90.5 %; Nucleated Red Blood Cells % 0 %; Platelet Count 194 10^3/cmm (157-399); Red Blood Count 3.51 10^6/uL (3.85-5.65); Red Cell Distribution Width 13.7 % (12.1-15.1); White Blood Count 8.88 10^3/uL (3.29-11.43)
--- NOTE | 2024-04-17 17:13 | PC.NURSE ---
following 250 ml bolus, BP 80/57. Pulse 90. Dr. Verduzco advised. Awaiting response. Pt remains in trendelenburg.
[2024-04-17 17:17] LABS: Alanine Aminotransferase 7 U/L (0-33); Albumin Level 3.9 g/dL (3.5-5.2); Alkaline Phosphatase 78 U/L (35-105); Anion Gap 13.1 (5-19); Aspartate Amino Transferase 11 U/L (0-32); Blood Urea Nitrogen 16 mg/dL (6-20); Calcium 8.6 mg/dL (8.5-10.5); Carbon Dioxide 24 mmol/L (22-29); Chloride 109 mmol/L (98-107); Creatinine Clr Calc Pharmacy 59.6101; Globulin 2.6 g/dL (1.3-4.6); Glomerular Filtration Rate 47.2 mL/min (90-130); Glucose 129 mg/dL (65-115); Osmolality Calculated 297 mOsm/kg (285-295); Potassium 4.1 mmol/L (3.5-5.1); Sodium 142 mmol/L (136-145); Total Bilirubin 0.2 mg/dL (0.15-1.2); Total Protein 6.5 g/dL (6.6-8.7)
[2024-04-17] MEDS: mupirocin oint 22 gm 1 APPLIC NASAL (17:31)
[2024-04-17] MEDS: famotidine 20 mg Tablet PO (17:32)
[2024-04-17] MEDS: calcium carbonate 500 mg Chew Tablet 1000 MG PO (17:32)
[2024-04-17] MEDS: iron polysaccharide complex 150 mg Capsule PO (17:32)
[2024-04-17] MEDS: sennosides-docusate Tablet 2 TAB PO (17:33)
--- NOTE | 2024-04-17 17:39 | PC.NURSE ---
New orders received to transfer to ICU
[2024-04-17] MEDS: sodium chloride 0.9% 1,000 ML 75 ML IV (18:12)
--- NOTE | 2024-04-17 18:31 | PHA.VACGOAL ---
Vancomycin Goal - Goal Vancomycin Goal:: 10-15 mg/L Vancomycin Indication:: Other - Therapy Current therapy:: Clindamycin Day of therpy:: Day []of [] . Actual body weight (kg): 191 lb - Data Labs: WBC 8.88 10^3/uL (3.29-11.43) 04/17/24 16:28 RBC 3.51 10^6/uL (3.85-5.65) L 04/17/24 16:28 Hgb 10.30 g/dL (11.27-16.99) L 04/17/24 16:28 Hct 31.8 % (36-47) L 04/17/24 16:28 MCV 90.6 fl (85-98) 04/17/24 16: MCH 29.3 pg (27-33) 04/17/24 16:28 MCHC 32.4 g/dL (30-55) 04/17/24 16:28 RDW 13.7 % (12.1-15.1) 04/17/24 16:28 Sodium 142 mmol/L (136-145) 04/17/24 16:28 Potassium 4.1 mmol/L (3.5-5.1) 04/17/24 16:28 Chloride 109 mmol/L (98-107) H 04/17/24 16:28 Carbon Dioxide 24 mmol/L (22-29) 04/17/24 16:28 Anion Gap 13.1 (5-19) 04/17/24 16:28 BUN 16 mg/dL (6-20) 04/17/24 16:28 Creatinine 1.2 mg/dL (0.5-0.9) H 04/17/24 16:28 GFR Calculation 47.2 mL/min (90-130) L 04/17/24 16:28 Last dialysis session:: N/A Treatment plan:: new consult Regimen:: LOADING DOSE OF 1500 MG PER DOSING PROTOCOL MAINTENANCE DOSE OF 750 MG Q12H Follow up:: WILL CONTINUE TO MONITOR AND FOLLOW UP DAILY
[2024-04-17] MEDS: oxyCODONE 5 mg IR Tab/Cap PO ×2 (19:18→23:11)
[2024-04-17] MEDS: norepinephrine 4 MG/250 ML BAG 7.5 MG IV (19:20)
--- NOTE | 2024-04-17 19:38 | P.CONIM_ITS ---
Providers/Reason For Consult 2 Consulting Physician/Specialty*: Hospitalist Reason for Consult*: Postop hypotension Attending Physician: Judy Chacon MD Primary Care Provider: Hallie Gatica MD History of Present Illness History of Present Illness Deyanira Frey is a 54 year old female postop day 0 Left knee medial unicompartmental arthroplasty with Abdifatah guidance by orthopedics, hospitalist was consulted for postoperative hypotension. Patient is stating that she took Coreg 1 day before her surgery and stopped Entresto as per the instructions, she does have low EF. At the time of my evaluation she is on Levophed at 2 mics, normal saline running at 75 mL/h: I have requested nurse to only run 500 mL of fluids. Patient's blood pressure is 127/54 mmHg, she is not complain of any active shortness of breath or chest pain or abdominal pain stating she is experiencing cramps in her left leg. I have requested nurse to give her muscle relaxer at this point I have counseled patient not to take Entresto at home if blood pressure stays low. She has been taking Coreg and Entresto for quite some time. Lactic acid likely related to hypotension perioperatively. Clinically patient does not look fluid overloaded, she is afebrile Review of Systems 2 Const: Denies: fever(s) Eyes: Denies: change in vision ENMT: Denies: throat pain Card: Denies: chest pain Resp: Denies: dyspnea GI: Denies: abdominal pain : Denies: flank pain Medications/Allergies Home Medications Medication Instructions Recorded Confirmed Last Taken Type Hinged knee brace, LEFT #1 ea 05/07/23 04/09/24 Unknown Rx hinged knee brace #1 ea 06/18/23 04/09/24 Unknown Rx carvedilol 12.5 mg tablet 12.5 mg PO DAILY 90 days #90 tabs 10/29/23 04/16/24 04/15/24 Rx famotidine 20 mg tablet 20 mg PO BID 90 days #180 tabs 10/29/23 04/16/24 04/15/24 Rx levothyroxine 200 mcg tablet 200 mcg PO DAILY 90 days #90 tabs 10/29/23 04/16/24 04/15/24 Rx meloxicam 15 mg tablet 15 mg PO DAILY 90 days #90 tabs 10/29/23 04/16/24 04/12/24 Rx methocarbamol 750 mg tablet 750 mg PO BID 90 days #180 tabs 10/29/23 04/16/24 04/11/24 Rx Medial Floors Buffer Knee Brace #1 ea 01/04/24 04/09/24 Unknown Rx buspirone 15 mg tablet 15 mg PO TID 30 days #90 tabs 01/11/24 04/16/24 04/13/24 Rx trazodone 50 mg tablet 50 mg PO .qhs PRN Insomnia #30 tabs 01/11/24 04/16/24 Unknown Rx miscellaneous medical supply See Rx Instructions miscellaneous 02/05/24 04/09/24 Unknown Rx .COMPLEX #1 ea pregabalin 100 mg capsule 100 mg PO BID 30 days #60 caps 02/05/24 04/16/24 04/11/24 Rx sacubitril 49 mg-valsartan 51 mg 1 tab PO BID #180 tabs 02/27/24 04/16/24 04/13/24 Rx tablet diazepam 5 mg tablet 5 mg PO BID PRN anxiety 30 days 02/28/24 04/16/24 04/12/24 Rx #30 tabs tramadol 50 mg tablet 50 mg PO Q8H PRN pain #21 tabs 02/29/24 04/16/24 04/14/24 Rx furosemide 20 mg tablet (Lasix) 20 mg PO DAILY #30 tabs 03/31/24 04/16/24 04/14/24 Rx spironolactone 25 mg tablet 25 mg PO DAILY #30 tabs 03/31/24 04/16/24 04/13/24 Rx hydrocodone 5 mg-acetaminophen 325 1 tab PO Q8H PRN pain 5 days #15 04/01/24 04/16/24 04/14/24 Rx mg tablet tabs bupropion HCl 150 mg 24 hr tablet, 150 mg PO QAM 04/16/24 04/16/24 04/13/24 History extended release (Wellbutrin XL) Allergies Allergy/AdvReac Type Severity Reaction Status Date / Time Penicillins Allergy hives Verified 04/16/24 14:03 Current Medications Generic Name Dose Route Start Last Admin Trade Name Freq PRN Reason Stop Dose Admin Hydrocodone Bitart/Acetaminophen 1 tab 04/17/24 12:12 04/17/24 12:44 Hydrocodone-Acetaminophen 5-325 Mg Tablet PO 1 tab Q8H PRN Administration pain Buspirone HCl 15 mg 04/17/24 15:00 04/17/24 14:34 Buspirone 10 Mg Tablet PO 15 mg TID DENISSE Administration Calcium Carbonate 1,000 mg 04/17/24 18:00 04/17/24 17:32 Calcium Carbonate 500 Mg Chew Tablet PO 1,000 mg BID DENISSE Administration Celecoxib 200 mg 04/17/24 12:12 04/17/24 12:44 Celecoxib 200 Mg Capsule PO 200 mg Q12H DENISSE Administration Chlorhexidine Gluconate 30 ml 04/17/24 13:00 04/17/24 17:31 Chlorhexidine Gluconate 0.12% Btl 473 Ml MUCOUS MEM 30 ml QID DENISSE Administration Famotidine 20 mg 04/17/24 18:00 04/17/24 17:32 Famotidine 20 Mg Tablet PO 20 mg BID DENISSE Administration Acetaminophen 1,000 mg in 100 mls @ 400 mls/hr 04/17/24 12:12 04/17/24 14:26 Acetaminophen IV 04/18/24 04:26 Infused Q8H DENISSE Infusion Clindamycin HCl/Dextrose 900 mg in 50 mls @ 100 mls/hr 04/17/24 15:00 04/17/24 15:18 Cleocin IV 04/18/24 07:29 Infused Q8H DENISSE Infusion Protocol Sodium Chloride 1,000 mls @ 75 mls/hr 04/17/24 18:00 04/17/24 18:12 Sodium Chloride 0.9% IV 75 mls/hr .[id number] DENISSE Administration Norepinephrine Bitartrate 4 mg in 250 mls @ 0 mls/hr 04/17/24 18:00 04/17/24 19:20 Levophed IV 2 mcg/min .Q0M DENISSE 7.5 mls/hr Administration Protocol Per Protocol Mupirocin 1 applic 04/17/24 18:00 04/17/24 17:31 Mupirocin Oint 22 Gm NASAL 04/22/24 17:59 1 applic BID DENISSE Administration Protocol Oxycodone HCl 5 - 10 mg 04/17/24 12:12 04/17/24 19:18 Oxycodone 5 Mg Ir Tab/Cap PO 10 mg Q4H PRN Administration MODERATE TO SEVERE PAIN Polysaccharide Iron Complex 150 mg 04/17/24 18:00 04/17/24 17:32 Iron Polysaccharide Complex 150 Mg Capsule PO 150 mg BIDWM DENISSE Administration Senna/Docusate Sodium 2 tab 04/17/24 18:00 04/17/24 17:33 Sennosides-Docusate Tablet PO 2 tab BID DENISSE Administration PFSH Acute 2 PFSH: Medical History MCL sprain of left knee Primary osteoarthritis of left knee Positive Anahi test of left knee Instability of left knee joint Instability of right knee joint Osteoarthritis of right knee Grief MDD (major depressive disorder) Psychiatric care CHF (congestive heart failure) Low back pain at multiple sites Social History Smoking and tobacco/nicotine status: never used tobacco/nicotine Alcohol intake: current Alcohol intake frequency: holidays/special occasions only Substance/Drug Use: never Vitals/I&O/Wt Last Vital Signs Temp 97.1 F L 04/17/24 15:50 Pulse 91 04/17/24 18:14 Resp 18 04/17/24 19:18 BP 90/54 04/17/24 18:14 Pulse Ox 100 04/17/24 19:18 O2 Del Method Room Air 04/17/24 18:14 O2 Flow Rate 0 04/17/24 12:12 04/17/24 04/17/24 04/17/24 06:59 14:59 22:59 Intake Total 100 / 100 150 / 150 520 / 670 Output Total 550 / 550 Balance 100 / 100 -400 / -400 520 / 120 Weight last 48 hrs Weight 86.636 kg Weight 86.636 kg Physical Exam 2 Narrative: Patient is awake and alert Clinically looks euvolemic No active sign of heart failure Left leg covered in dressing No neurovascular compromise noted on left leg GCS 15 Nonfocal neuroexam Levophed at 2 mics Normal saline running at 75 mL/h, Blood pressure 127/54 mmHg Awake and alert AO x 4 Currently on room air Saturating 100% No active distress Urinary Catheter Management: Argueta: Cath Placed During This Visit: yes Reason for Continuing Indwelling Catheter: Perioperative Use in Selected Surgeries Urinary Catheter Date of Insertion: 04/17/24 Urinary Catheter Time of Insertion: 07:45 Data 04/17/24 16:28 04/17/24 16:28 A&P Assessment and plan (1) JORGE (generalized anxiety disorder): (2) CHF (congestive heart failure): Qualifiers: Heart failure type: unspecified Heart failure chronicity: chronic Qualified Code(s): I50.9 - Heart failure, unspecified (3) Heart failure with reduced ejection fraction (HFrEF, <= 40%) and combined systolic and diastolic dysfunction: (4) Chronic kidney disease (CKD): Qualifiers: Chronic kidney disease stage: stage 3 (moderate) Chronic kidney disease stage 3 subtype: stage 3a (GFR 45-59) Qualified Code(s): N18.31 - Chronic kidney disease, stage 3a (5) Lumbar disc disease with radiculopathy: (6) S/P knee surgery: (7) Postoperative hypotension: Plan Postoperative hypotension Multifactorial Likely combination of n.p.o. status, anesthesia, spironolactone, Entresto, Coreg, low EF She was instructed by PCP to stop taking Entresto on day of surgery, (I have instructed patient not to take Entresto at least 24 hours before surgery If she goes for any in future) No active signs of decompensated heart failure with underlying cardiomyopathy No active sign of infection High lactic acid related to hypotension perioperatively Continue IV fluids, finish 500 mL of normal saline, wean off Levophed gradually overnight Patient has received antibiotics perioperatively Drop in H&H noted from 12 to 10.3 Will do another H&H after 4 hours Patient complaining of left calf muscle cramps she will get muscle relaxant along opioids Bowel regimen I have counseled patient not to take Entresto if blood pressure stays below 90/60 mmhgat home Continue levothyroxine No signs of bradycardia history of left bundle branch block Continue cardiac diet DVT prophylaxis: Heparin She may start aspirin therapeutic dose next day PT in the morning Consult Attestations 2 Medical Necessity Statement: As per orthopedics Coding Level of Care Code 40578 Diagnoses JORGE (generalized anxiety disorder) F41.1 Chronic congestive heart failure, unspecified heart failure type I50.9 Heart failure type: unspecified Heart failure chronicity: chronic Heart failure with reduced ejection fraction (HFrEF, <= 40%) and combined systolic and diastolic dysfunction I50.40 Stage 3a chronic kidney disease N18.31 Chronic kidney disease stage: stage 3 (moderate) Chronic kidney disease stage 3 subtype: stage 3a (GFR 45-59) Lumbar disc disease with radiculopathy M51.16 S/P knee surgery Z98.890 Postoperative hypotension I95.81
[2024-04-17 20:10] LABS: Lactic Sepsis W/Reflex 2.6 mmol/L (0.5-2.2)
[2024-04-17] MEDS: pregabalin 100 mg Capsule PO (20:29)
[2024-04-17] MEDS: vancomycin 1,500 MG/300 ML PIGGYBACK 200 MG IV (20:30)
[2024-04-17] MEDS: methocarbamol 750 mg Tablet PO (20:41)
[2024-04-17 21:38] LABS: Reflex Lactate Order REFLEX LACTIC ORDERD
[2024-04-17 22:57] LABS: Hematocrit 30.1 % (36-47)
[2024-04-17] MEDS: heparin 5,000 unit/mL INJ 1 mL 5000 UNIT SUBCUT (23:12)
[2024-04-17] MEDS: trazodone 50 mg Tablet PO (23:12)
[2024-04-17 23:22] LABS: Lactic Acid level (Lactate) 1.5 mmol/L (0.5-2.2)
[2024-04-18] VITALS (99 sets, daily range): BP systolic 71–142; BP diastolic 38–107; PULSE 50–114; RESP 11–43; TEMP 36.4–37.6; O2SAT 91–100
--- NOTE | 2024-04-18 01:41 | ECG_ITS ---
[facility] Test Date: 2024-04-18 Pat Name: Deyanira Frey Department: Room: [facility] Gender: Female Delivery Representative: : 1970 Requested By: Nilesh Lama Order Number: [id number] Jordan MD: Guillermo Pacheco M.D. Measurements Intervals [place] Rate: 52 P: 0 [place]: 0 QRS: -10 QRSD: 169 T: 50 QT: 516 QTc: 482 Interpretive Statements SINUS BRADYCARDIA WITH SINUS ARRHYTHMIA LEFT BUNDLE BRANCH BLOCK [120+ ms QRS DURATION, 80+ ms Q/S IN V1/V2, 85+ ms R IN I/aVL/V5/V6] Compared to ECG 11/14/2023 09:52:57 Sinus rhythm no longer present Electronically Signed On 04-19-2024 13:21:21 GEARMAN by Guillermo Pacheco M.D. [email or web address]
[2024-04-18] MEDS: acetaminophen 1,000 MG/100 ML PIGGYBACK 400 MG IV (04:00)
[2024-04-18 04:49] LABS: Basophils % 0.3 %; Eosinophils % 0.1 %; Hematocrit 29.8 % (36-47); Lymphocytes # 1.4 10^3/uL (0.8-4.8); Lymphocytes % 10.4 %; Mean Corpuscular HGB Conc 32.2 g/dL (30-55); Mean Corpuscular Hemoglobin 28.8 pg (27-33); Mean Corpuscular Volume 89.5 fl (85-98); Mean Platelet Volume 10.7 fL (7.4-10.4); Monocytes # 1.2 10^3/uL (0.2-0.9); Monocytes % 8.7 %; Neutrophils # 10.95 10^3/uL (1.8-7.7); Nucleated Red Blood Cells % 0 %; Platelet Count 197 10^3/cmm (157-399); Red Blood Count 3.33 10^6/uL (3.85-5.65); Red Cell Distribution Width 13.6 % (12.1-15.1); White Blood Count 13.69 10^3/uL (3.29-11.43)
[2024-04-18 05:10] LABS: Anion Gap 14.8 (5-19); Blood Urea Nitrogen 15 mg/dL (6-20); Calcium 8.1 mg/dL (8.5-10.5); Carbon Dioxide 20 mmol/L (22-29); Chloride 107 mmol/L (98-107); Creatinine Clr Calc Pharmacy 71.5321; Glomerular Filtration Rate 58.2 mL/min (90-130); Glucose 140 mg/dL (65-115); Osmolality Calculated 289 mOsm/kg (285-295); Potassium 3.8 mmol/L (3.5-5.1); Sodium 138 mmol/L (136-145)
[2024-04-18 05:11] LABS: Lactic Sepsis W/Reflex 0.7 mmol/L (0.5-2.2)
[2024-04-18] MEDS: buPROPion XL (24 HR) 150 mg Tablet PO (05:49)
[2024-04-18] MEDS: clindamycin 900 MG/50 ML PREMIX 100 MG IV (05:54)
[2024-04-18] MEDS: VANCOMYCIN ADD-Vantage 750 MG in 0.9% NaCl ADD-Vantage 250 ML 250 MG IV ×2 (06:20→18:09)
[2024-04-18] MEDS: oxyCODONE 5 mg IR Tab/Cap PO ×4 (06:23→19:56)
[2024-04-18] MEDS: cholecalciferol (vitamin D3) 1,000 unit Tablet 1000 UNIT PO (09:02)
[2024-04-18] MEDS: meloxicam 7.5 mg tablet 15 MG PO (09:03)
[2024-04-18] MEDS: levothyroxine 200 mcg Tablet PO (09:03)
[2024-04-18] MEDS: multivitamin therapeutic Tablet 1 TAB PO (09:03)
[2024-04-18] MEDS: pregabalin 100 mg Capsule PO ×2 (09:03→21:19)
[2024-04-18] MEDS: aspirin 325 mg EC Tablet PO (09:03)
[2024-04-18] MEDS: methocarbamol 750 mg Tablet PO (09:03)
[2024-04-18] MEDS: TRAMadol 50 mg Tablet PO ×2 (09:03→17:54)
[2024-04-18] MEDS: famotidine 20 mg Tablet PO ×2 (09:03→17:54)
[2024-04-18] MEDS: BuSPIRONE 10 mg Tablet 15 MG PO ×3 (09:04→21:19)
[2024-04-18] MEDS: chlorhexidine gluconate 0.12% Btl 473 mL 30 ML MUCOUS MEM ×4 (09:04→21:21)
[2024-04-18] MEDS: sennosides-docusate Tablet 2 TAB PO ×2 (09:04→17:54)
[2024-04-18] MEDS: iron polysaccharide complex 150 mg Capsule PO ×2 (09:04→17:54)
[2024-04-18] MEDS: calcium carbonate 500 mg Chew Tablet 1000 MG PO ×2 (09:04→17:54)
[2024-04-18] MEDS: mupirocin oint 22 gm 1 APPLIC NASAL ×2 (09:09→17:55)
[2024-04-18 09:26] LABS: Hematocrit 32.9 % (36-47)
[2024-04-18] MEDS: CELEcoxib 200 mg Capsule PO (13:42)
[2024-04-18] MEDS: aztreonam 1,000 MG in sodium chloride 0.9% (plus) 50 ML 100 MG IV ×2 (13:43→23:56)
--- NOTE | 2024-04-18 14:22 | P.PN_ITS ---
Subjective 2 Subjective: This 54-year-old lady underwent elective left unicompartmental knee arthroplasty. The surgical procedure was uneventful, but subsequently, while in the PACU, she had some hypotension. This was treated with anesthesia. The patient was subsequently transferred to the floor, and the hypotension recurred causing her to be transferred to the intensive care unit. Levophed drip was started per the hospitalist team. This was continued through the night. Attempted weaning both in the night and this morning have failed, and the patient continues to have low blood pressures. She is known to have approximately 20% ejection fraction, but she was cleared for the surgical procedure through cardiology and was evaluated preoperatively as well. The patient notes she is doing well. She is attempting to ambulate when blood pressure allows. Medications: Reviewed: Yes Vitals/I&O/Wt Last Vital Signs Temp 97.6 F 04/18/24 08:45 Pulse 76 04/18/24 13:15 Resp 17 04/18/24 14:09 BP 93/54 04/18/24 13:15 Pulse Ox 95 04/18/24 14:09 O2 Del Method Room Air 04/18/24 08:45 O2 Flow Rate 0 04/17/24 12:12 04/17/24 04/18/24 04/18/24 22:59 06:59 14:59 Intake Total 865.625 / 7667.924 4900.875 / 2207.500 1013.875 / 1013.875 Output Total 650 / 1200 Balance 865.625 / 465.625 541.875 / 9499.307 8300.875 / 1013.875 Weight last 48 hrs Weight 201 lb 4.8 oz Weight 191 lb Weight 191 lb Physical Exam 2 Const: COMMON NORMALS: no acute distress, average body habitus, patient oriented x3 and alert GENERAL APPEARANCE: cooperative and comfortable O RIENTATION/CONSCIOUSNESS: Yes awake HENMT: COMMON NORMALS: normocephalic and atraumatic HEAD & SCALP: n ormocephalic and atraumatic Eye: GENERAL EYE: appearance normal, both eyes and all related structures Chest: COMMONS NORMALS: normal inspection of the chest Resp: COMMON NORMALS: normal respiratory effort EFFORT & INSPECTION: Yes able to speak in complete sentences and Yes symmetric chest movement Extremity: LEFT LOWER EXTREMITY: Yes knee joint (Dressing is removed.) Left knee: Yes inspection (No significant ecchymosis), Yes palpation (Minimal tenderness), Yes ROM (Not evaluated) and Yes neurovascular exam (Intact distally) Neuro: COMMON NORMALS: patient oriented x3 SENSORIUM/ORIENTATION: Yes alert Psych: COMMON NORMALS: mental status grossly normal APPEARANCE: Yes grossly normal ATTITUDE: Yes calm and Yes engaged ATTENTION/CONCENTRATION: Yes attention grossly intact Skin: COMMON NORMALS: no rashes or lesions noted GENERAL SKIN EXAM: no rashes or lesions noted Urinary Catheter Management: Argueta: Cath Placed During This Visit: yes, but has since been removed by the nurse Reason for Continuing Indwelling Catheter: Decision to DC Catheter Urinary Catheter Date of Insertion: 04/17/24 Urinary Catheter Time of Insertion: 07:45 Date Urinary Catheter Removed: 04/18/24 Time Urinary Catheter Discontinued: 10:40 Data 04/18/24 09:19 04/18/24 04:31 Micro: Microbiology 04/17/24 19:35 Blood Culture - Preliminary Blood SPECIMEN COLLECTED 04/17/24 19:40 Blood Culture - Preliminary Blood SPECIMEN COLLECTED A&P Assessment and plan (1) Primary osteoarthritis of left knee: Patient underwent uneventful unicompartmental knee arthroplasty yesterday. Subsequently, she was admitted to the intensive care unit with postoperative hypotension. The patient has been on Levophed with 2 trials of discontinuation unsuccessful. She has worked with physical therapy. She is planning to be discharged to home, and is anxious to be able to do this. The blood pressure will need to be stabilized per the hospitalist team. The patient was converted to inpatient status and will work with the hospitalist team to stabilize her for discharge to home. Patient is advised that I will be leaving town tomorrow. I have asked Dr. Monterroso, my coverage, to see her over the weekend. Hospitalist is hopeful that she may be ready for discharge tomorrow. We will continue to follow her as long as she is in the hospital. She will follow-up with me as previously scheduled. (2) Status post unicompartmental knee replacement, left: (3) Postoperative hypotension: (4) Heart failure with reduced ejection fraction (HFrEF, <= 40%) and combined systolic and diastolic dysfunction: Attestations 2 Medical Necessity Statement*: Per hospitalist team due to hypotension Coding Level of Care Code Acute Code for [facility] Diagnoses Primary osteoarthritis of left knee M17.12 Status post unicompartmental knee replacement, left Z96.652 Postoperative hypotension I95.81 Heart failure with reduced ejection fraction (HFrEF, <= 40%) and combined systolic and diastolic dysfunction I50.40
--- NOTE | 2024-04-18 15:47 | P.PN_ITS ---
Subjective 2 Subjective: Seen this morning. Patient has been off of the Levophed this morning. Blood pressure stable however later did drop to 70s over 40s and required Levophed again. She is asymptomatic and doing well otherwise. Vitals/I&O/Wt Last Vital Signs Temp 97.6 F 04/18/24 08:45 Pulse 95 04/18/24 14:30 Resp 19 H 04/18/24 14:30 BP 96/58 04/18/24 14:30 Pulse Ox 98 04/18/24 14:30 O2 Del Method Room Air 04/18/24 08:45 O2 Flow Rate 0 04/17/24 12:12 04/18/24 04/18/24 04/18/24 06:59 14:59 22:59 Intake Total 1191.875 / 2207.500 1013.875 / 1013.875 Output Total 650 / 1200 Balance 541.875 / 0015.247 4183.875 / 1013.875 Weight last 48 hrs Weight 91.308 kg Weight 86.636 kg Weight 86.636 kg Physical Exam 2 Narrative: Patient is awake and alert No active sign of heart failure Left leg covered in dressing No neurovascular compromise noted on left leg GCS 15 Nonfocal neuroexam Currently on Levophed. Normal saline running at 75 mL/h, Awake and alert AO x 4 Currently on room air Saturating 100% No active distress Urinary Catheter Management: Argueta: Cath Placed During This Visit: yes, but has since been removed by the nurse Reason for Continuing Indwelling Catheter: Decision to DC Catheter Urinary Catheter Date of Insertion: 04/17/24 Urinary Catheter Time of Insertion: 07:45 Date Urinary Catheter Removed: 04/18/24 Time Urinary Catheter Discontinued: 10:40 Data 04/18/24 09:19 04/18/24 04:31 Micro: Microbiology 04/17/24 19:35 Blood Culture - Preliminary Blood SPECIMEN COLLECTED 04/17/24 19:40 Blood Culture - Preliminary Blood SPECIMEN COLLECTED A&P Assessment and plan (1) JORGE (generalized anxiety disorder): (2) CHF (congestive heart failure): Qualifiers: Heart failure type: unspecified Heart failure chronicity: chronic Qualified Code(s): I50.9 - Heart failure, unspecified (3) Heart failure with reduced ejection fraction (HFrEF, <= 40%) and combined systolic and diastolic dysfunction: (4) Chronic kidney disease (CKD): Qualifiers: Chronic kidney disease stage: stage 3 (moderate) Chronic kidney disease stage 3 subtype: stage 3a (GFR 45-59) Qualified Code(s): N18.31 - Chronic kidney disease, stage 3a (5) Lumbar disc disease with radiculopathy: (6) S/P knee surgery: (7) Postoperative hypotension: Plan Postoperative hypotension Multifactorial Likely combination of n.p.o. status, anesthesia, spironolactone, Entresto, Coreg, low EF She was instructed by PCP to stop taking Entresto on day of surgery, (I have instructed patient not to take Entresto at least 24 hours before surgery If she goes for any in future) No active signs of decompensated heart failure with underlying cardiomyopathy No active sign of infection High lactic acid related to hypotension perioperatively Continue IV fluids, finish 500 mL of normal saline, wean off Levophed gradually overnight Patient has received antibiotics perioperatively Drop in H&H noted from 12 to 10.3 Will do another H&H after 4 hours Patient complaining of left calf muscle cramps she will get muscle relaxant along opioids Bowel regimen I have counseled patient not to take Entresto if blood pressure stays below 90/60 mmhgat home Continue levothyroxine No signs of bradycardia history of left bundle branch block Continue cardiac diet DVT prophylaxis: Heparin She may start aspirin therapeutic dose next day PT in the morning 04/18/2024 Seen today. I believe patient's hypotension is secondary to polypharmacy with combination of anesthesia yesterday. I do expect her blood pressure to improve in the next 24 to 48 hours. Another component is pain medication. ? She is not in decompensated heart failure at this time. ? Sepsis workup also initiated. I will check pancultures. ? Continue empiric Vanco and aztreonam at this time. ? Patient does have a heart block. It is first-degree at this time. I would stop Coreg at this time. ? If she continues to remain stable in next 24 to 48 hours may consider discharge home. I will hold Valium as well. I will hold methocarbamol as well. continue levophed and wean off as able Discussed with Dr. Chacon in detail. Attestations 2 Medical Necessity Statement*: hypotension, multifactorial on levophed Critical Care Time: The high probability of a clinically significant, sudden or life threatening deterioration of the patient's [cardiovascular] system(s) required my full and direct attention, intervention and personal management. The critical care time is as shown. This time is in addition to time spent performing any reported procedures but includes the following: [x] Data and vital sign review and interpretation [x] Patient assessment, examination and intervention [x] Documentation [x] Medication orders and management Critical Care Time (min): 45 Diagnoses JORGE (generalized anxiety disorder) F41.1 Chronic congestive heart failure, unspecified heart failure type I50.9 Heart failure type: unspecified Heart failure chronicity: chronic Heart failure with reduced ejection fraction (HFrEF, <= 40%) and combined systolic and diastolic dysfunction I50.40 Stage 3a chronic kidney disease N18.31 Chronic kidney disease stage: stage 3 (moderate) Chronic kidney disease stage 3 subtype: stage 3a (GFR 45-59) Lumbar disc disease with radiculopathy M51.16 S/P knee surgery Z98.890 Postoperative hypotension I95.81
[2024-04-18] MEDS: trazodone 50 mg Tablet PO (21:19)
[2024-04-19] VITALS (23 sets, daily range): BP systolic 94–125; BP diastolic 50–96; PULSE 81–100; RESP 12–28; TEMP 36.4–36.9; O2SAT 93–98
[2024-04-19] MEDS: HYDROcodone-acetaminophen 5-325 mg Tablet 1 TAB PO (05:01)
[2024-04-19 05:37] LABS: Basophils # 0.1 10^3/uL (0.0-0.1); Basophils % 0.8 %; Eosinophils # 0.5 10^3/uL (0.0-0.8); Eosinophils % 6.4 %; Lymphocytes # 1.1 10^3/uL (0.8-4.8); Lymphocytes % 14.3 %; Mean Corpuscular HGB Conc 32.3 g/dL (30-55); Mean Corpuscular Volume 89.8 fl (85-98); Mean Platelet Volume 11.2 fL (7.4-10.4); Monocytes # 0.5 10^3/uL (0.2-0.9); Monocytes % 6.6 %; Neutrophils # 5.71 10^3/uL (1.8-7.7); Neutrophils % 71.4 %; Nucleated Red Blood Cells % 0 %; Platelet Count 161 10^3/cmm (157-399); Red Blood Count 3.34 10^6/uL (3.85-5.65); Red Cell Distribution Width 14.2 % (12.1-15.1); White Blood Count 7.99 10^3/uL (3.29-11.43)
[2024-04-19 05:52] LABS: Blood Urea Nitrogen 13 mg/dL (6-20); Calcium 8.4 mg/dL (8.5-10.5); Carbon Dioxide 23 mmol/L (22-29); Chloride 105 mmol/L (98-107); Creatinine Clr Calc Pharmacy 81.3441; Glomerular Filtration Rate 65.8 mL/min (90-130); Glucose 95 mg/dL (65-115); Magnesium 1.9 mg/dL (1.7-2.3); Osmolality Calculated 282 mOsm/kg (285-295); Sodium 136 mmol/L (136-145)
[2024-04-19] MEDS: VANCOMYCIN ADD-Vantage 750 MG in 0.9% NaCl ADD-Vantage 250 ML 250 MG IV (06:06)
[2024-04-19] MEDS: TRAMadol 50 mg Tablet PO (07:27)
[2024-04-19] MEDS: sennosides-docusate Tablet 2 TAB PO (08:13)
[2024-04-19] MEDS: cholecalciferol (vitamin D3) 1,000 unit Tablet 1000 UNIT PO (08:13)
[2024-04-19] MEDS: calcium carbonate 500 mg Chew Tablet 1000 MG PO (08:13)
[2024-04-19] MEDS: meloxicam 7.5 mg tablet 15 MG PO (08:13)
[2024-04-19] MEDS: aspirin 325 mg EC Tablet PO (08:13)
[2024-04-19] MEDS: BuSPIRONE 10 mg Tablet 15 MG PO ×2 (08:14→14:22)
[2024-04-19] MEDS: pregabalin 100 mg Capsule PO (08:15)
[2024-04-19] MEDS: famotidine 20 mg Tablet PO (08:16)
[2024-04-19] MEDS: CELEcoxib 200 mg Capsule PO (08:16)
[2024-04-19] MEDS: multivitamin therapeutic Tablet 1 TAB PO (08:16)
[2024-04-19] MEDS: iron polysaccharide complex 150 mg Capsule PO (08:16)
[2024-04-19] MEDS: levothyroxine 200 mcg Tablet PO (08:16)
[2024-04-19] MEDS: chlorhexidine gluconate 0.12% Btl 473 mL 30 ML MUCOUS MEM (08:17)
[2024-04-19] MEDS: mupirocin oint 22 gm 1 APPLIC NASAL (08:17)
[2024-04-19] MEDS: oxyCODONE 5 mg IR Tab/Cap PO (11:05)
--- NOTE | 2024-04-19 11:54 | P.PN_ITS ---
Subjective 2 Subjective: seen this morning pt bp has been stable overnight without levophed she feels well and not complaining of any symptoms Vitals/I&O/Wt Last Vital Signs Temp 98.3 F 04/19/24 08:00 Pulse 88 04/19/24 10:00 Resp 19 H 04/19/24 11:05 BP 102/65 04/19/24 10:00 Pulse Ox 97 04/19/24 10:00 O2 Del Method Room Air 04/19/24 10:00 O2 Flow Rate 0 04/17/24 12:12 04/18/24 04/19/24 04/19/24 22:59 06:59 14:59 Intake Total 603.625 / 1617.500 200 / 1817.500 450 / 450 Output Total 650 / 650 800 / 800 Balance -46.375 / 967.500 200 / 1167.500 -350 / -350 Weight last 48 hrs Weight 90.673 kg Weight 91.308 kg Weight 86.636 kg Physical Exam 2 Narrative: Patient is awake and alert No active sign of heart failure Left leg covered in dressing No neurovascular compromise noted on left leg GCS 15 Nonfocal neuroexam sitting up in chair feeling well . Awake and alert AO x 4 Currently on room air Saturating 100% No active distress Urinary Catheter Management: Argueta: Cath Placed During This Visit: yes, but has since been removed by the nurse Reason for Continuing Indwelling Catheter: Decision to DC Catheter Urinary Catheter Date of Insertion: 04/17/24 Urinary Catheter Time of Insertion: 07:45 Date Urinary Catheter Removed: 04/18/24 Time Urinary Catheter Discontinued: 10:40 Data 04/19/24 05:03 04/19/24 05:03 Micro: Microbiology 04/17/24 19:35 Blood Culture - Preliminary Blood NEGATIVE TO DATE 04/17/24 19:40 Blood Culture - Preliminary Blood NEGATIVE TO DATE A&P Assessment and plan (1) JORGE (generalized anxiety disorder): (2) CHF (congestive heart failure): Qualifiers: Heart failure type: unspecified Heart failure chronicity: chronic Qualified Code(s): I50.9 - Heart failure, unspecified (3) Heart failure with reduced ejection fraction (HFrEF, <= 40%) and combined systolic and diastolic dysfunction: (4) Chronic kidney disease (CKD): Qualifiers: Chronic kidney disease stage: stage 3 (moderate) Chronic kidney disease stage 3 subtype: stage 3a (GFR 45-59) Qualified Code(s): N18.31 - Chronic kidney disease, stage 3a (5) Lumbar disc disease with radiculopathy: (6) S/P knee surgery: (7) Postoperative hypotension: Plan Postoperative hypotension Multifactorial Likely combination of n.p.o. status, anesthesia, spironolactone, Entresto, Coreg, low EF She was instructed by PCP to stop taking Entresto on day of surgery, (I have instructed patient not to take Entresto at least 24 hours before surgery If she goes for any in future) No active signs of decompensated heart failure with underlying cardiomyopathy No active sign of infection High lactic acid related to hypotension perioperatively Continue IV fluids, finish 500 mL of normal saline, wean off Levophed gradually overnight Patient has received antibiotics perioperatively Drop in H&H noted from 12 to 10.3 Will do another H&H after 4 hours Patient complaining of left calf muscle cramps she will get muscle relaxant along opioids Bowel regimen I have counseled patient not to take Entresto if blood pressure stays below 90/60 mmhgat home Continue levothyroxine No signs of bradycardia history of left bundle branch block Continue cardiac diet DVT prophylaxis: Heparin She may start aspirin therapeutic dose next day PT in the morning 04/18/2024 Seen today. I believe patient's hypotension is secondary to polypharmacy with combination of anesthesia yesterday. I do expect her blood pressure to improve in the next 24 to 48 hours. Another component is pain medication. ? She is not in decompensated heart failure at this time. ? Sepsis workup also initiated. I will check pancultures. ? Continue empiric Vanco and aztreonam at this time. ? Patient does have a heart block. It is first-degree at this time. I would stop Coreg at this time. ? If she continues to remain stable in next 24 to 48 hours may consider discharge home. I will hold Valium as well. I will hold methocarbamol as well. continue levophed and wean off as able Discussed with Dr. Chacon in detail. 04/19/2024 seen today patients hypotension has resolved levophed has been off since last night pt feels well and not symptomatic had a discussion with her to hold her BP medications going forward and they will be gradually added told her to stop coreg as well. there was transient first degree AV block on EKG which later resolved patient to follow up with cardiology after discharge and her PCP i have held methocarbamol, entresto spironalactone going forward she is to see her primary care doctor for restarting her meds along with cardiology told her to check her bp at home and monitor it she may dc from medicine standpoint will order cipro for 5 days at dc for empiric coverage Attestations 2 Medical Necessity Statement*: defer to primary team Diagnoses JORGE (generalized anxiety disorder) F41.1 Chronic congestive heart failure, unspecified heart failure type I50.9 Heart failure type: unspecified Heart failure chronicity: chronic Heart failure with reduced ejection fraction (HFrEF, <= 40%) and combined systolic and diastolic dysfunction I50.40 Stage 3a chronic kidney disease N18.31 Chronic kidney disease stage: stage 3 (moderate) Chronic kidney disease stage 3 subtype: stage 3a (GFR 45-59) Lumbar disc disease with radiculopathy M51.16 S/P knee surgery Z98.890 Postoperative hypotension I95.81
--- NOTE | 2024-04-19 12:09 | PC.NURSE ---
Notified Dr. Monterroso that Dr. Verduzco reports that patient is good for discharge per medical standpoint.
[2024-04-19] MEDS: aztreonam 1,000 MG in sodium chloride 0.9% (plus) 50 ML 100 MG IV (12:35)
--- NOTE | 2024-04-19 12:56 | PC.NURSE ---
Contacted Rodolfo from [facility] regarding patient needing walker for discharge today. Notified Rodolfo that Healthcare Prof put in her not that it was ordered.
--- NOTE | 2024-04-19 13:36 | P.PN_ITS ---
Subjective 2 Subjective: Patient seen and examined in ICU patient's progress well with therapy well ready for discharge today. Blood pressure has been stable and without Levophed cleared by the internal medicine team for discharge today. Vitals/I&O/Wt Last Vital Signs Temp 98.4 F 04/19/24 12:00 Pulse 84 04/19/24 12:00 Resp 15 04/19/24 12:00 BP 105/80 04/19/24 12:00 Pulse Ox 98 04/19/24 12:00 O2 Del Method Room Air 04/19/24 12:00 O2 Flow Rate 0 04/17/24 12:12 04/18/24 04/19/24 04/19/24 22:59 06:59 14:59 Intake Total 603.625 / 1617.500 200 / 1817.500 700 / 700 Output Total 650 / 650 800 / 800 Balance -46.375 / 967.500 200 / 1167.500 -100 / -100 Weight last 48 hrs Weight 199 lb 14.4 oz Weight 201 lb 4.8 oz Physical Exam 2 Narrative: Left knee examination: Dressing on in place, clean dry and intact. No evidence of saturation. Patient has normal postoperative swelling and tenderness to palpation to the knee. Compartments are soft compressible,'s calf soft and nontender. Sensations intact to light touch distally. Distal pulses are palpable. Patient is able to wiggle toes as well as plantarflex and dorsiflex ankle. Const: GENERAL APPEARANCE: cooperative and comfortable O RIENTATION/CONSCIOUSNESS: Yes awake Resp: COMMON NORMALS: normal respiratory effort EFFORT & INSPECTION: Yes able to speak in complete sentences Psych: COMMON NORMALS: mental status grossly normal APPEARANCE: Yes grossly normal ATTITUDE: Yes calm and Yes engaged ATTENTION/CONCENTRATION: Yes attention grossly intact Skin: COMMON NORMALS: no rashes or lesions noted GENERAL SKIN EXAM: no rashes or lesions noted Urinary Catheter Management: Argueta: Cath Placed During This Visit: yes, but has since been removed by the nurse Reason for Continuing Indwelling Catheter: Decision to DC Catheter Urinary Catheter Date of Insertion: 04/17/24 Urinary Catheter Time of Insertion: 07:45 Date Urinary Catheter Removed: 04/18/24 Time Urinary Catheter Discontinued: 10:40 Data 04/19/24 05:03 04/19/24 05:03 Micro: Microbiology 04/17/24 19:35 Blood Culture - Preliminary Blood NEGATIVE TO DATE 04/17/24 19:40 Blood Culture - Preliminary Blood NEGATIVE TO DATE Xray Ortho: Radiologist's impression: Ordering Provider/Ordering MD: Judy Chacon MD Date of Service: 04/17/24 Procedure(s): XR knee LT 3V* [id number] Accession Number(s): [id number] Report Number: [id number] WS: [id number] Exam: XR knee LT 3V* [id number] Date/Time of Exam: 04/17/2024 10:43 AM Reason For Exam: Status post unicompartmental knee arthroplasty Medial joint compartment apartment arthroplasty in place in satisfactory position. Postoperative changes in the adjacent soft tissues. XR/XR knee LT 3V* [id number] IMPRESSION: 1. Medial joint replacement in satisfactory position. A&P Assessment and plan (1) Primary osteoarthritis of left knee: (2) Status post unicompartmental knee replacement, left: (3) Postoperative hypotension: (4) Heart failure with reduced ejection fraction (HFrEF, <= 40%) and combined systolic and diastolic dysfunction: Plan Plan per patient's surgeon Dr. Chacon on 04/18/2024 listed below: Patient underwent uneventful unicompartmental knee arthroplasty yesterday. Subsequently, she was admitted to the intensive care unit with postoperative hypotension. The patient has been on Levophed with 2 trials of discontinuation unsuccessful. She has worked with physical therapy. She is planning to be discharged to home, and is anxious to be able to do this. The blood pressure will need to be stabilized per the hospitalist team. The patient was converted to inpatient status and will work with the hospitalist team to stabilize her for discharge to home. Patient is advised that I will be leaving town tomorrow. I have asked Dr. Monterroso, my coverage, to see her over the weekend. Hospitalist is hopeful that she may be ready for discharge tomorrow. We will continue to follow her as long as she is in the hospital. She will follow-up with me as previously scheduled. 04/19/2024 update to plan patient has now been off of the Levophed holding her blood pressure well cleared by the internal medicine for discharge at this point time stable from orthopedic standpoint and will discharge home today. Patient will follow-up with Dr. Chacon in 2 weeks per her scheduled appointment. Patient understands and agrees with current plan. All questions answered. Attestations 2 Medical Necessity Statement*: Ongoing care status unicompartmental knee replacement left knee Coding Level of Care Code Acute Code for Chg Fwd Diagnoses Primary osteoarthritis of left knee M17.12 Status post unicompartmental knee replacement, left Z96.652 Postoperative hypotension I95.81 Heart failure with reduced ejection fraction (HFrEF, <= 40%) and combined systolic and diastolic dysfunction I50.40 Time Spent (min) 25
--- NOTE | 2024-04-19 13:54 | P.DS_ITS ---
Discharge Providers Date of Admission: 04/18/24 10:11 Date of Discharge: April 19, 2024 Attending Provider at Admission: Judy Chacon MD Attending Provider at Discharge: Judy Chacon MD Consults: Dr. Verduzco?hospitalist Primary Care Provider: Hallie Gatica MD Diagnoses at Discharge Discharge Diagnosis (1) Primary osteoarthritis of left knee: Status: Chronic (2) Status post unicompartmental knee replacement, left: Status: Acute (3) Postoperative hypotension: Status: Resolved (4) Heart failure with reduced ejection fraction (HFrEF, <= 40%) and combined systolic and diastolic dysfunction: Status: Acute Reason for Visit Reason for Visit: Brief History: S/p left unicompartmental knee arthroplasty Hospital Course Hospital Course Patient presented to the preoperative holding area with plan for left unicompartmental knee arthroplasty. Patient was worked up by Dr. Chacon in the outpatient setting for left unicompartmental knee arthroplasty and has failed conservative treatment of left knee medial compartment arthritis. Once cleared by anesthesia for surgery patient subsequently was taken back to the operative suite underwent anesthesia per anesthesia department and then subsequently un derwent a left unicompartmental knee arthroplasty. Postoperatively patient had hypotension and was taken to ICU and internal medicine on board and assisted with patient's postoperative hypotension. Patient had been placed on Levophed and being managed by the hospitalist team. Please refer to daily hospitalist consultation and progress notes for details pertaining to her care with this. He was determined on postoperative day 2 that patient had been off of her Levophed and maintain blood pressure was cleared by the internal medicine. It was determined on postoperative day 2 the patient was stable for discharge from an orthopedic standpoint and medicine. Patient was comfortable with discharge and plan was discharged home. Patient received appropriate discharge instructions as well as pain medication and DVT prophylaxis postoperatively. Given appropriate instructions for dressing management. Patient will follow-up with Dr. Chacon/orthopedics in the office in 2 weeks. All questions answered. Understand if there is any issues questions or concerns and contact the office. Physical Exam Narrative: Left knee examination: Dressing on in place, clean dry and intact. No evidence of saturation. Patient has normal postoperative swelling and tenderness to palpation to the knee. Comp artments are soft compressible,'s calf soft and nontender. Sensations intact to light touch distally. Distal pulses are palpable. Patient is able to wiggle toes as well as plantarflex and dorsiflex ankle. Const: GENERAL APPEARANCE: cooperative and comfortable ORIENTATION/CONSCIOUSNESS: Yes awake Resp: COMMON NORMALS: normal respiratory effort EFFORT & INSPECTION: Yes able to speak in complete sentences Psych: COMMON NORMALS: mental status grossly normal APPEARANCE: Yes grossly normal ATTITUDE: Yes calm and Yes engaged ATTENTION/CONCENTRATION: Yes attention grossly intact Skin: COMMON NORMALS: no rashes or lesions noted GENERAL SKIN EXAM: no rashes or lesions noted Urinary Catheter Management: Argueta: Cath Placed During This Visit: yes, but has since been removed by the nurse Reason for Continuing Indwelling Catheter: Decision to DC Catheter Urinary Catheter Date of Insertion: 04/17/24 Urinary Catheter Time of Insertion: 07:45 Date Urinary Catheter Removed: 04/18/24 Time Urinary Catheter Discontinued: 10:40 Discharge Data Studies Completed and Pending Completed Studies During Hospitalization Category Date Time Status XR knee LT 3V* [id number] Urgent Exams 04/17/24 10:40 Completed Pending at discharge Category Date Time Status Blood Culture Stat Lab 04/17/24 19:35 Results Sputum Culture and Gram Stain Stat Lab 04/17/24 17:52 Uncollected Urine Culture Stat Lab 04/17/24 18:25 Received Vancomycin Trough Timed Lab 04/19/24 18:00 Ordered Radiology Impressions Knee X-Ray 04/17/24 10:40 IMPRESSION: 1. Medial joint replacement in satisfactory position. Laboratory Results WBC 7.99 10^3/uL (3.29-11.43) 04/19/24 05:03 RBC 3.34 10^6/uL (3.85-5.65) L 04/19/24 05:03 Hgb 9.70 g/dL (11.27-16.99) L 04/19/24 05:03 Hct 30.0 % (36-47) L 04/19/24 05:03 MCV 89.8 fl (85-98) 04/19/24 05:03 MCH 29.0 pg (27-33) 04/19/24 05:03 MCHC 32.3 g/dL (30-55) 04/19/24 05:03 RDW 14.2 % (12.1-15.1) 04/19/24 05:03 Plt Count 161 10^3/cmm (157-399) 04/19/24 05:03 MPV 11.2 fL (7.4-10.4) H 04/19/24 05:03 Neut % (Auto) 71.4 % 04/19/24 05:03 Lymph % (Auto) 14.3 % 04/19/24 05:03 Roosevelt % (Auto) 6.6 % 04/19/24 05:03 Eos % (Auto) 6.4 % 04/19/24 05:03 Baso % (Auto) 0.8 % 04/19/24 05:03 Neut # (Auto) 5.71 10^3/uL (1.8-7.7) 04/19/24 05:03 Lymph # (Auto) 1.1 10^3/uL (0.8-4.8) 04/19/24 05:03 Roosevelt # (Auto) 0.5 10^3/uL (0.2-0.9) 04/19/24 05:03 Eos # (Auto) 0.5 10^3/uL (0.0-0.8) 04/19/24 05:03 Baso # (Auto) 0.1 10^3/uL (0.0-0.1) 04/19/24 05:03 Nucleated RBC % (auto) 0 % 04/19/24 05:03 Nucleated RBCs # 0.0 /100WBC 04/19/24 05:03 Sodium 136 mmol/L (136-145) 04/19/24 05:03 Potassium 4.0 mmol/L (3.5-5.1) 04/19/24 05:03 Chloride 105 mmol/L (98-107) 04/19/24 05:03 Carbon Dioxide 23 mmol/L (22-29) 04/19/24 05:03 Anion Gap 12.0 (5-19) 04/19/24 05:03 BUN 13 mg/dL (6-20) 04/19/24 05:03 Creatinine 0.9 mg/dL (0.5-0.9) 04/19/24 05:03 GFR Calculation 65.8 mL/min (90-130) L 04/19/24 05:03 Glucose 95 mg/dL (65-115) 04/19/24 05:03 Calculated Osmolality 282 mOsm/kg (285-295) L 04/19/24 05:03 Lactic Acid 0.7 mmol/L (0.5-2.2) 04/18/24 04:31 Lactic Acid (Sepsis) 1.5 mmol/L (0.5-2.2) 04/17/24 22:48 Calcium 8.4 mg/dL (8.5-10.5) L 04/19/24 05:03 Magnesium 1.9 mg/dL (1.7-2.3) 04/19/24 05:03 Total Bilirubin 0.2 mg/dL (0.15-1.2) 04/17/24 16:28 AST 11 U/L (0-32) 04/17/24 16:28 ALT 7 U/L (0-33) 04/17/24 16:28 Alkaline Phosphatase 78 U/L (35-105) 04/17/24 16:28 Total Protein 6.5 g/dL (6.6-8.7) L 04/17/24 16:28 Albumin 3.9 g/dL (3.5-5.2) 04/17/24 16:28 Globulin 2.6 g/dL (1.3-4.6) 04/17/24 16:28 Vitals Last Vital Signs Temp 98.4 F 04/19/24 12:00 Pulse 84 04/19/24 12:00 Resp 15 04/19/24 12:00 BP 105/80 04/19/24 12:00 Pulse Ox 98 04/19/24 12:00 O2 Del Method Room Air 04/19/24 12:00 O2 Flow Rate 0 04/17/24 12:12 Discharge Plan Discharge Patient Disposition: Home Condition: Stable Prescriptions: New celecoxib 200 mg Capsule 200 mg PO 1XD 30 Days Qty: 30 0RF aspirin 325 mg Tablet,Delayed Release (Dr/Ec) 325 mg PO DAILY 30 Days Qty: 30 0RF polysaccharide iron complex [Ferrex 150] 150 mg iron Capsule 150 mg PO BIDWM Qty: 30 0RF ciprofloxacin HCl [Cipro] 500 mg tablet 500 mg PO BID Qty: 6 0RF Continued (DME) Hinged knee brace, LEFT See Rx Instructions .Route .MEDSUPPLY Qty: 1 0RF Rx Instructions: As directed levothyroxine 200 mcg tablet 200 mcg PO DAILY 90 Days Qty: 90 2RF famotidine 20 mg tablet 20 mg PO BID 90 Days Qty: 180 2RF buspirone 15 mg tablet 15 mg PO TID 30 Days Qty: 90 3RF trazodone 50 mg tablet 50 mg PO .qhs PRN (Reason: Insomnia) Qty: 30 3RF (DME) 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 See Rx Instructions .ROUTE .MEDSUPPLY Qty: 1 0RF Rx Instructions: As directed (DME) hinged knee brace See Rx Instructions .Route .MEDSUPPLY Qty: 1 0RF Rx Instructions: As directed pregabalin 100 mg capsule 100 mg PO BID 30 Days Qty: 60 3RF tramadol 50 mg tablet 50 mg PO Q8H PRN (Reason: pain) Qty: 21 0RF bupropion HCl [Wellbutrin XL] 150 mg tablet extended release 24 hr 150 mg PO QAM hydrocodone-acetaminophen 5-325 mg tablet 1 tab PO Q8H PRN (Reason: pain) 7 Days Qty: 21 0RF Held meloxicam 15 mg tablet 15 mg PO DAILY 90 Days Qty: 90 2RF Hold Instructions: renal fnx Rx Instructions: WITH FOOD methocarbamol 750 mg tablet 750 mg PO BID 90 Days Qty: 180 2RF Hold Instructions: see pcp sacubitril-valsartan 49-51 mg tablet 1 tab PO BID Qty: 180 3RF Hold Instructions: see cardiology diazepam 5 mg tablet 5 mg PO BID PRN (Reason: anxiety) 30 Days Qty: 30 5RF Hold Instructions: see pcp furosemide [Lasix] 20 mg tablet 20 mg PO DAILY Qty: 30 6RF Hold Instructions: see pcp spironolactone 25 mg tablet 25 mg PO DAILY Qty: 30 6RF Hold Instructions: see cardiology Discontinued carvedilol 12.5 mg tablet 12.5 mg PO DAILY 90 Days Qty: 90 2RF Rx Instructions: must administer with a meal/food Discharge Orders: Discharge Order (Routine); Ordered 04/19/24 Ordered By: Enzo Monterroso Other Ambulatory Orders: DME: Walker (Order) Location: None Selected Ordered By: Judy Chacon Referrals: Judy Chacon MD [Physician] - 04/30/24 10:15 am Selin Nath FNP [Nurse Practitioner] - 1-3 days Discharge Diet: Advance as tolerated and Usual diet Discharge Activity: Increase activity as tolerated, Limit activity as instructed, Use walker/crutches as instructed and As per PT/OT instructions Patient Instructions: Ciprofloxacin (By mouth), Aspirin (By mouth) (Dusty Extra Strength, Dusty Aspirin Children[facility],..., Celecoxib (By mouth), Vitamin B with Iron (By mouth) (FE C Tab Plus, Ferocon, Ferrex 150..., Acute Wound Care (DC), Opioid Safety, Post Anesthesia Care Activity Restrictions/Additional Instructions: Ice and elevation to left knee. You may weight-bear as tolerated. Range of motion, strengthening, and gait training per physical therapy. Maintain your dressing until you are seen in the office. If it lifts up and starts to leak, however, you may remove it. You may shower, but do not submerge your knee in water. Please call Sunday to schedule a follow-up with your museum preparator, Dr. Ho Mercedez [phone]. Patient's Health Concerns: I have held your blood pressure medications at discharge. Please check your BP twice a day and your medications will be gradually added back on. Please follow up with cardiology and PCP as soon as possible to discuss medication adjustments going forward. If experiencing symptoms as discussed with you, please return to ER immediately. Discharge Attestations Time Spent in Discharge Care*: less than 30 min Quality Metrics Clinical Quality Measures [ No reported AMI, CVA or VTE this stay] Coding Level of Care Code Acute Code for Chg Fwd Diagnoses Primary osteoarthritis of left knee M17.12 Status post unicompartmental knee replacement, left Z96.652 Postoperative hypotension I95.81 Heart failure with reduced ejection fraction (HFrEF, <= 40%) and combined systolic and diastolic dysfunction I50.40 Time Spent (min) 25
--- NOTE | 2024-05-01 10:35 | PM.OP ---
Operative Report Date of procedure: May 01, 2024 Pre-op diagnosis: Left knee medial compartment primary osteoarthritis Surgeon: Judy Chacon MD
== END 2024-04-19 16:00 | disposition home or self-care (01) | DRG 982 ==
LOC: MEDSURG 12:10 → ICU 18:55
PROVIDERS: Internal Medicine; Admitting Provider Specialist; PCP Family Medicine; Visit Provider Specialist
PROC: 8E0Y0CZ Robotic Assisted Procedure of Lower Extremity, Open Approach (ICD-10-PCS; CPT 27447; principal; 2024-04-17 07:00)
DX: I95.81 Postprocedural hypotension (principal); I13.0 Hypertensive heart and chronic kidney disease with heart failure and stage 1 through stage 4 chronic kidney disease, or unspecified chronic kidney disease; I50.22 Chronic systolic (congestive) heart failure; I42.9 Cardiomyopathy, unspecified; M17.12 Unilateral primary osteoarthritis, left knee; I44.7 Left bundle-branch block, unspecified; F32.9 Major depressive disorder, single episode, unspecified; K21.9 Gastro-esophageal reflux disease without esophagitis; F41.1 Generalized anxiety disorder; N18.31 Chronic kidney disease, stage 3a; M51.16 Intervertebral disc disorders with radiculopathy, lumbar region; I44.0 Atrioventricular block, first degree; Z79.02 Long term (current) use of antithrombotics/antiplatelets
CPT/HCPCS: 36415; 51702; 73562; 80048; 80053; 83605; 83735; 85014; 85018; 85025; 87040; 87086; 93005; 96372; 97110; 97116; 97162; 97165; 97530; 97535; A4216; C1776; G0378; J0131; J1100; J1644; J2250; J2704; J2795; J3010; J3370; J3490; J7030; J7050; P9045

== ENCOUNTER → 2024-07-11 11:55 | Outpatient (BNVA) | payer MEDICAID, SELFPAY | PROVIDERS: PCP Family Medicine; Visit Provider Nurse Practitioner | DX: Z96.652 Presence of left artificial knee joint (principal) | CPT/HCPCS: 73560; 73565 ==

== ENCOUNTER → 2024-08-27 14:31 | Outpatient (BNVA) | payer MEDICAID, SELFPAY | PROVIDERS: PCP Family Medicine; Visit Provider Family Medicine | DX: I50.40 Unspecified combined systolic (congestive) and diastolic (congestive) heart failure (principal); E03.9 Hypothyroidism, unspecified; N18.31 Chronic kidney disease, stage 3a; D63.8 Anemia in other chronic diseases classified elsewhere | CPT/HCPCS: 80048; 80061; 84443; 85025 ==

== ENCOUNTER → 2024-10-01 08:58 | Outpatient (BNVA) | payer MEDICAID, SELFPAY | PROVIDERS: PCP Family Medicine; Visit Provider Family Medicine | DX: E03.9 Hypothyroidism, unspecified (principal); R25.3 Fasciculation; M62.81 Muscle weakness (generalized) | CPT/HCPCS: 80053; 83735; 84439; 84443; 84481 ==

== ENCOUNTER → 2024-10-09 15:12 | Outpatient (BNVA) | payer MEDICAID, SELFPAY | PROVIDERS: PCP Family Medicine; Visit Provider Family Medicine | DX: N18.31 Chronic kidney disease, stage 3a (principal); I10 Essential (primary) hypertension | CPT/HCPCS: 80048; 81000; 82043; 83735 ==

== ENCOUNTER → 2024-10-13 13:48 | Outpatient (BNVA) | payer MEDICAID, SELFPAY | PROVIDERS: PCP Family Medicine; Visit Provider Nurse Practitioner | DX: Z96.652 Presence of left artificial knee joint (principal) | CPT/HCPCS: 73560; 73565 ==

== ENCOUNTER → 2024-11-26 14:06 | Outpatient (BNVA) | payer MEDICAID, SELFPAY | PROVIDERS: Family Provider Family Medicine; PCP Family Medicine; Visit Provider Family Medicine | DX: N18.31 Chronic kidney disease, stage 3a (principal) | CPT/HCPCS: 80048 ==

== ENCOUNTER → 2025-02-16 14:14 | Outpatient (BNVA) | payer MEDICAID, SELFPAY | PROVIDERS: Family Provider Family Medicine; PCP Family Medicine; Visit Provider Family Medicine | DX: I50.40 Unspecified combined systolic (congestive) and diastolic (congestive) heart failure (principal); E03.9 Hypothyroidism, unspecified | CPT/HCPCS: 80048; 84443 ==